=== PATIENT | female | born 1945 | race Caucasian/White ===

== ENCOUNTER → 2016-03-03 | Day surgery (SDC) | payer OTHER ==
[2016-02-25 10:25] VITALS: Ht 157.5 cm; Wt 77.3 kg
[2016-02-28 11:02] LABS: BASO % 0.3 %; BASO ABS # 0.02 K/uL (0-0.2); COMPLETE YES; EOS % 5.1 %; IG% 0.2 %; LYMPH % 30.1 %; LYMPH ABS # 1.73 K/uL (1.2-3.4); MEAN CELL VOLUME 88.2 fL (80-100); MEAN CORPUSCULAR HEMOGLOBIN 30.8 pg (25-34); MEAN CORPUSCULAR HGB CONC 34.9 g/dl (32-36); MEAN PLATELET VOLUME 9.4 fL (7.4-10.4); NEUT % 56.3 %; PLATELET COUNT 237 K/uL (130-400); RED BLOOD COUNT 4.65 M/uL (4.2-5.4); WHITE BLOOD COUNT 5.74 K/uL (4.8-10.8)
[~2016-03-03] VITALS: Ht 157.5 cm; Wt 77.3 kg
[~2016-03-03] MED LIST: ALPR0.25 PO; ASPI-232 PO; ATOR10TA88 PO; DEXAMETHASONE SOD INJ 4 MG/ML VIAL ONE; FENTANYL CITRATE INJ 50 MCG/1 ML 2 ML VIAL IV PRN; FENTANYL CITRATE INJ 50 MCG/1 ML 2 ML VIAL ONE; KETOROLAC TROMETHAMINE 30 MG/ML VIAL IV. PRN; KETOROLAC TROMETHAMINE 30 MG/ML VIAL ONE; LACTATED RINGER'S 1000ML 1,000 ML IV PRN; LACTATED RINGER'S 1000ML 1,000 ML IV SCH; LIDOCAINE HCL 2% 2 ML VIAL (20MG/ML) ONE; LORA-741 PO; METO25TA3 PO; MIDAZOLAM HCL 1 MG/ML 2ML VIAL ONE; NRV/5 PO; OMEP20CA9 PO; OMEP20TA14 PO; ONDANSETRON INJ 2 MG/ML 2 ML VIAL IV PRN; ONDANSETRON INJ 2 MG/ML 2 ML VIAL ONE; OXYCODONE/ACETAMINOPHEN 5-325 TAB PO PRN; PROMETHAZINE HCL INJ 25 MG in SODIUM CHLORIDE 0.9% 50ML 50 ML IV PRN; PROPOFOL IV EMULSION 10 MG/ML 20 ML VIAL IV ONE; SODIUM CHLORIDE 0.9% 1000ML 1,000 ML IV SCH; ZOLP5TAB6 PO
--- NOTE | 2016-03-03 08:08 | History & Physical Bridge - [place] ---
H&P Re-Evaluation Bridge Note: I have examined the patient, reviewed the History & Physical and in the interval since the performance of the History & Physical I have noted the following changes of clinical significance: No changes noted
--- NOTE | 2016-03-03 08:45 | Discharge Instructions-SurgCtr ---
Discharge Instructions Visit Reason for Visit: Thickened Endometrium Discharge Discharge Diagnosis / Problem: same Discharge Goals Goal(s): Diagnostic testing Activity Recommendations Activity Limitations: per Instructions/Follow-up section Anesthesia . Post Anesthesia Instructions: If you have had General Anesthesia or IV Sedation: * Do not drive today. * Resume driving when surgeon permits. * Do not make important decisions or sign legal documents today. * Call surgeon for: 1. Temperature elevations greater than 101 degrees F. 2. Uncontrollable pain. 3. Excessive bleeding. 4. Persistent nausea and vomiting. 5. Medication intolerance (nausea, vomiting or rash). * For nausea and vomiting use only clear liquids such as: tea, soda, bouillon until nausea subsides, then gradually increase diet as tolerated. * If you have any concerns or questions, call your surgeon's office. If physician is unavailable and it is an emergency, call 911 or go to the nearest emergency room. . Instructions / Follow-Up Instructions / Follow-Up ACTIVITY RECOMMENDATIONS: * Avoid tampons, douching, hot tubs, pools, and intercourse until bleeding has stopped. * May shower as usual. * No strenuous activity for 24-48 hours. After 24-48 hours, you may do anything you feel like doing (driving and sports are okay). SPECIAL CARE INSTRUCTIONS: Special Diet: * Mild nausea may occur in the immediate post-operative period. * Take clear liquids such as tea, cola or bouillon until all nausea has subsided; you may then resume your normal diet. Special Care: * Light bleeding and vaginal spotting can last from a few days to 3-4 weeks. Call your doctor if bleeding becomes heavier than the heaviest part of your period. * Check your temperature twice a day for one week. If it goes above 100.4 degrees Fahrenheit (38.0 Celsius), notify your doctor. * Call your doctor's office for an appointment for 6 weeks after your surgery. FOLLOW-UP VISIT: Call your doctor's office for an appointment for 6 weeks after your surgery. Diet Recommendations Home Diet: resume previous diet Procedures Procedures Performed: Dilatation and Curettage, Hysteroscopy Pending Studies Studies pending at discharge: yes (pathology review of specimen) Medical Emergencies . Who to Call and When: Medical Emergencies: If at any time you feel your situation is an emergency, please call 911 immediately. . Non-Emergent Contact Non-Emergency issues call your: Primary Care Provider, Master [employer] Parach[employer]ist . . "Provider Documentation" section prepared by Michelle Collins.
--- NOTE | 2016-03-03 08:46 | [facility] Post Operative Brief Note ---
Immediate Operative Summary Operative Date Mar 03, 2016. Pre-Operative Diagnosis Thickened Endometrium Post-Operative Diagnosis Same Procedure(s) Performed Dilatation and Curettage, Hysteroscopy Surgeon Dr. Collins Professor Of Food Biochemistry Surgeon(s) None Estimated Blood Loss Less than 5ML Findings Retroverted uterus, sounded to 8cm. Large amount of fluffy endometrium, obscuring tubal ostia. Specimens A. Endocervical Curettings B. Endometrial Curettings
--- NOTE | 2016-03-03 08:52 | Medical Student: [facility] ---
Immediate Operative Summary Operative Date Mar 03, 2016. Pre-Operative Diagnosis Post-menopausal bleeding Post-Operative Diagnosis Post-menopausal bleeding Procedure(s) Performed Dilation and curettage with hysteroscopy Surgeon Dr. Collins Car Scrubber Surgeon(s) None Estimated Blood Loss <5mL Findings Increased vasculature within the uterus. Retroverted uterus. Vaginal atrophy present. Specimens Endometrial samples obtained for pathology Complication(s) None Disposition Recovery Room / PACU
--- NOTE | 2016-03-03 09:19 | Anesthesia Progress Nt - [facility] ---
Anesthesia Post Op Note Date & Time Mar 03, 2016 at 09:18 Vital Signs Pain Intensity: 0 Vital Signs Past 12 Hours Date Time Temp Pulse Resp B/P Pulse Ox O2 Delivery O2 Flow Rate FiO2 03/03/16 08:50 36.0 92 16 134/90 99 Diffusion Mask 8 03/03/16 06:27 36.5 76 16 130/85 96 Room Air Notes Mental Status: alert / awake / arousable, participated in evaluation Pt Amnestic to Procedure: Yes Nausea / Vomiting: adequately controlled Pain: adequately controlled Airway Patency, RR, SpO2: stable & adequate BP & HR: stable & adequate Hydration State: stable & adequate Anesthetic Complications: no major complications apparent Pt doing well.
--- NOTE | 2016-03-03 09:28 | OPERATIVE REPORT ---
DATE OF OPERATION: 03/03/2016 PREOPERATIVE DIAGNOSIS: Thickened endometrium. POSTOPERATIVE DIAGNOSIS: Same. PROCEDURE: Hysteroscopy, dilation and curettage. SURGEON: Michelle Collins DO PRE K TEACHER: None. ESTIMATED BLOOD LOSS: Less than 5 mL. FINDINGS: Retroverted uterus sounded to 8 cm, large amount of endometrial tissue, unable to visualize tubal ostia. SPECIMENS: Endocervical curettings and endometrial curettings. DISPOSITION: Stable to PACU. INDICATIONS FOR PROCEDURE: The patient is a 70-year-old -0-1-0 who was found to have thickened endometrium with ultrasound for dull right lower pelvic pain. In office, endometrial biopsy was attempted but this was very painful, was a poor sample of tissue. Therefore, office hysteroscopy, dilation and curettage was performed. DESCRIPTION OF PROCEDURE: The patient was seen in the preoperative holding area where risks, benefits, alternatives of surgery were reviewed. She elected to proceed with surgery. Informed consent had previously been signed in the office. She was taken to the operating room where general anesthesia was administered. She was placed in the dorsal lithotomy position with feet in candy cane stirrups. A timeout was confirmed. The patient was prepared and draped in the usual sterile fashion. A weighted speculum was placed in the vagina. Cervix was visualized, it was grasped on the anterior lip with a single-tooth tenaculum. Endocervical curettage was undertaken. The specimen was passed off to be sent to pathology. Next, the uterus was sounded to 8 cm and noted to be retroverted. The cervix was sequentially dilated. The hysteroscope was then inserted through the cervix and the endometrial cavity was visualized. Due to thickened endometrium the tubal ostia were unable to be seen. Pictures were taken and the hysteroscope was withdrawn. The curettage was then undertaken with a sharp curette. This sample was sent to pathology as endometrial curettage. All instruments were removed from the vagina. Excellent hemostasis was observed. The patient was awoken from anesthesia and cleaned of all Betadine prep and taken to the recovery room in stable and good condition. I attest to the content of the Intraoperative Record and any orders documented therein. Any exceptions are noted below. RABIA
[2016-03-03 09:29] VITALS: TEMP 36.1
[2016-03-03 09:55] VITALS: BP 128/81; PULSE 65; O2SAT 97
== END | disposition home or self-care (01) ==
LOC: X.SURG 06:14
PROVIDERS: ATTEND Obstetrics & Gynecology
DX: N84.0 Polyp of corpus uteri (principal); R93.8 Abnormal findings on diagnostic imaging of other specified body structures; N85.4 Malposition of uterus

== ENCOUNTER 2016-04-09 01:23 | Observation (INO) | payer OTHER ==
[2016-04-09] VITALS (7 sets, daily range): BP systolic 133–139; BP diastolic 71–81; PULSE 82–85; TEMP 36.6–36.7; O2SAT 94–96; Ht 162.6 cm; Wt 75.0 kg
[~2016-04-09] VITALS: Ht 162.6 cm; Wt 75.0 kg
[~2016-04-09 01:23] MED LIST changes: -DEXAMETHASONE SOD INJ 4 MG/ML VIAL ONE; -FENTANYL CITRATE INJ 50 MCG/1 ML 2 ML VIAL IV PRN; -FENTANYL CITRATE INJ 50 MCG/1 ML 2 ML VIAL ONE; -KETOROLAC TROMETHAMINE 30 MG/ML VIAL IV. PRN; -KETOROLAC TROMETHAMINE 30 MG/ML VIAL ONE; -LACTATED RINGER'S 1000ML 1,000 ML IV PRN; -LACTATED RINGER'S 1000ML 1,000 ML IV SCH; -LIDOCAINE HCL 2% 2 ML VIAL (20MG/ML) ONE; -MIDAZOLAM HCL 1 MG/ML 2ML VIAL ONE; -OMEP20CA9 PO; -ONDANSETRON INJ 2 MG/ML 2 ML VIAL IV PRN; -ONDANSETRON INJ 2 MG/ML 2 ML VIAL ONE; -OXYCODONE/ACETAMINOPHEN 5-325 TAB PO PRN; -PROMETHAZINE HCL INJ 25 MG in SODIUM CHLORIDE 0.9% 50ML 50 ML IV PRN; -PROPOFOL IV EMULSION 10 MG/ML 20 ML VIAL IV ONE; -SODIUM CHLORIDE 0.9% 1000ML 1,000 ML IV SCH
[2016-04-09] MEDS ORDERED: NITROGLYCERIN 0.4 MG SL PER TAB CHARGE SL STA (02:26)
--- NOTE | 2016-04-09 02:27 | EMERGENCY ROOM VISIT NOTE ---
History Report prepared by Gerhard: Guillermina Palmer Under the Supervision of: Dr. Virginia Polo D.O. First contact with patient: 02:09 Chief Complaint: CARDIAC ASSESSMENT Stated Complaint: CHEST PRESSURE Nursing Triage Summary: pt arrived to [facility] via [facility] from home with c/o chest pressure that started approx 2300. pt reports 'its not pain, its like someone sitting on my chest' pt reports she had 'some left arm pain and nausea' pt reports hx of anxiety attacks. pt took half of an ativan and 2 baby aspirins prior to ambulance arrival. ambulance administered additional 2 baby asa for a total of 324mg. pt refused nitro d/t 'gives me a really bad headache' pt reports initially 8/10 pain. on arrival pt reports 3/10 arrival. pmhx htn, cardiac ablasion History of Present Illness The patient is a 70 year old female who presents to the Emergency Room with complaints of persistent chest heaviness that began around 2230 this evening. She currently rates her discomfort as a 3-4/10 in severity. The patient states that this evening she went to a basketball game around 1830 and states that she noticed left arm discomfort. She states that she took two aspirin and states that she started to feel better. The patient stats that around 2230 she noticed chest heaviness that kept worsening. The patient states that she additionally began feeling nauseous and states that her blood pressure was elevated at 174/104. She states that she took half an Ativan tablet to help with her symptoms, but denies any relief. The patient denies any shortness of breath with exertion or abdominal pain. Per records, the patient had a stress echocardiogram in April 2015 after having chest pain. Records note that the stress test was normal. The patient notes a family history of heart disease, stating that her father had a myocardial infarction, and additionally notes that he from an aortic dissection. She notes a personal history of hypertension and high cholesterol. The patient notes a family history of hypertension, but denies any personal family history of diabetes. Source of History: patient Onset: 0 this evenign Position: chest Symptom Intensity: 3-4/10 Quality: other (heaviness) Timing: other (persistent) Associated Symptoms: + nausea, No SOB, No abdominal pain Note: Associated Symptoms: elevated blood pressure, left arm pain Review of Systems See HPI for pertinent positives & negatives. A total of 10 systems reviewed and were otherwise negative. Past Medical & Surgical Medical Problems: (1) GERD (gastroesophageal reflux disease) (2) High cholesterol (3) HISTORY OF TOBACCO USE (4) HTN (hypertension) (5) MITRAL VALVE DISORDER (6) OBSTRUCTIVE SLEEP APNEA (ADULT) (PEDIATRIC) Surgical Problems: (1) H/O colonoscopy (2) H/O esophagogastroduodenoscopy (3) History of radiofrequency ablation procedure for cardiac arrhythmia (4) S/P cholecystectomy Family History Diabetes mellitus BROTHER FH: aortic dissection FATHER FH: cancer MOTHER (cervical) BROTHER (intestines) Stroke FATHER Social History Smoking Status: Never Smoker Marital Status: in relationship Occupation Status: employed Current/Historical Medications Scheduled Amlodipine Besylate (Amlodipine Besylate), 5 MG PO QAM Aspirin (Aspir-81), 81 MG PO QAM Atorvastatin (Lipitor), 10 MG PO HS Metoprolol Succ (Toprol Xl) (Toprol-Xl), 0.5 TAB PO HS Scheduled PRN Alprazolam (Xanax), 0.25 MG PO UD PRN for 1 hour pre flight Lorazepam (Ativan), 0.5 MG PO DAILY PRN for Anxiety Zolpidem Tartrate (Zolpidem Tartrate), 10 MG PO HS PRN for Sleep Allergies Coded Allergies: Latex1 -Allergic Contact Dermititis (Unverified Allergy, Intermediate, RASH, PRURITIS, 04/09/16) Aspartame (Verified Adverse Reaction, Unknown, n/v violent bar, 04/09/16) Erythromycin (Verified Adverse Reaction, Unknown, HEADACHE AND GI SYMPTOMS , 04/09/16) Neomycin (Verified Adverse Reaction, Unknown, "makes things worse when i use it", 04/09/16) Physical Exam Vital Signs Date Time Temp Pulse Resp B/P Pulse Ox O2 Delivery O2 Flow Rate FiO2 04/09/16 03:05 87 18 122/68 04/09/16 02:35 116 18 154/95 94 Room Air 04/09/16 01:32 79 04/09/16 01:29 96 Room Air 04/09/16 01:29 36.6 93 18 164/94 95 Room Air 04/09/16 01:29 96 Room Air Physical Exam HEENT: Head - normocephalic and atraumatic Pupils are equal, round, and reactive to light. Extraocular eye muscles are intact, and sclera are anicteric. Nose - moist nasal mucosa without discharge. Mouth - moist buccal mucosa. Oropharynx is nonerythematous and there is no tonsillar exudate or edema noted. Neck: Supple; no JVD, nuchal rigidity, cervical lymphadenopathy. Heart: Regular rate and rhythm. There is a normal S1 and S2 with no murmurs, clicks, or gallops appreciated. Lungs: Clear to auscultation bilaterally with no wheezes, rales, or rhonchi. Abdomen: Soft, completely nontender, nondistended, with good bowel sounds. There are no palpable pulsatile masses or hepatosplenomegaly. There is no guarding, rigidity, or rebound noted. Extremities: No evidence of cyanosis, clubbing, or edema. There are easily palpable peripheral pulses. Skin: warm and dry with good turgor and no rashes. Medical Decision & Procedures ER Provider Diagnostic Interpretation: 1 view chest x-ray: Compared to April 28 last year, elevated right natacha- diaphragm, atelectasis in left lung base, no pulmonary edema. Laboratory Results 04/09/16 01:05 Red Blood Count 5.27, Mean Corpuscular Volume 88.0, Mean Corpuscular Hemoglobin 30.7, Mean Corpuscular Hemoglobin Concent 34.9, Mean Platelet Volume 9.4, Neutrophils (%) (Auto) 55.0, Lymphocytes (%) (Auto) 31.4, Monocytes (%) (Auto) 9.0, Eosinophils (%) (Auto) 4.4, Basophils (%) (Auto) 0.1, Neutrophils # (Auto) 4.30, Lymphocytes # (Auto) 2.45, Monocytes # (Auto) 0.70, Eosinophils # (Auto) 0.34, Basophils # (Auto) 0.01 04/09/16 01:05 Test 04/09/16 01:05 White Blood Count 7.81 K/uL (4.8-10.8) Red Blood Count 5.27 M/uL (4.2-5.4) Hemoglobin 16.2 g/dL (12.0-16.0) Hematocrit 46.4 % (37-47) Mean Corpuscular Volume 88.0 fL (80-100) Mean Corpuscular Hemoglobin 30.7 pg (25-34) Mean Corpuscular Hemoglobin Concent 34.9 g/dl (32-36) Platelet Count 214 K/uL (130-400) Mean Platelet Volume 9.4 fL (7.4-10.4) Neutrophils (%) (Auto) 55.0 % Lymphocytes (%) (Auto) 31.4 % Monocytes (%) (Auto) 9.0 % Eosinophils (%) (Auto) 4.4 % Basophils (%) (Auto) 0.1 % Neutrophils # (Auto) 4.30 K/uL (1.4-6.5) Lymphocytes # (Auto) 2.45 K/uL (1.2-3.4) Monocytes # (Auto) 0.70 K/uL (0.11-0.59) Eosinophils # (Auto) 0.34 K/uL (0-0.5) Basophils # (Auto) 0.01 K/uL (0-0.2) RDW Standard Deviation 46.1 fL (36.4-46.3) RDW Coefficient of Variation 14.2 % (11.5-14.5) Immature Granulocyte % (Auto) 0.1 % Immature Granulocyte # (Auto) 0.01 K/uL (0.00-0.02) Prothrombin Time 10.5 SECONDS (9.0-12.0) Prothromb Time International Ratio 1.0 (0.9-1.1) Activated Partial Thromboplast Time 27.1 SECONDS (21.0-31.0) Partial Thromboplastin Ratio 1.0 Anion Gap 10.0 mmol/L (3-11) Est Creatinine Clear Calc Drug Dose 71.2 ml/min Estimated GFR () 94.9 Estimated GFR (Non- 81.9 BUN/Creatinine Ratio 12.6 (10-20) Calcium Level 9.2 mg/dl (8.5-10.1) Total Bilirubin 0.3 mg/dl (0.2-1) Direct Bilirubin < 0.1 mg/dl (0-0.2) Aspartate Amino Transf (AST/SGOT) 22 U/L (15-37) Alanine Aminotransferase (ALT/SGPT) 31 U/L (12-78) Alkaline Phosphatase 97 U/L (45-117) Total Creatine Kinase 41 U/L (26-192) Creatine Kinase MB 0.6 ng/ml (0.5-3.6) Creatine Kinase MB Ratio 1.5 (0-3.0) Troponin I < 0.015 ng/ml (0-0.045) Total Protein 8.1 gm/dl (6.4-8.2) Albumin 4.3 gm/dl (3.4-5.0) Laboratory results per my review. Medications Administered Medications (Trade) Dose Ordered Sig/Doris Route Start Time Stop Time Status Last Admin Dose Admin Nitroglycerin (Nitrostat Tab) 0.4 mg Q5M STAT SL 04/09/16 02:26 04/09/16 02:27 DC 04/09/16 02:31 0.4 MG Procedure The patient was treated with 0.4 mg SL Nitrostat Tab. ECG Indication: chest pain Rate (beats per minute): 86 Rhythm: normal sinus Findings: no acute ischemic change, no ectopy ED Course 0217: Past medical records reviewed. The patient was evaluated in room A4B. A complete history and physical exam was performed. An IV lock was initiated and labs are drones above. A twelve-lead EKG was obtained as described above. She was observing the runner on and pulse oximeter. 0226: Ordered Nitrostat Tab 0.4 mg SL. 0304: I reevaluated the patient and she has had complete relief of her chest she had a chest x-ray as described above. Symptoms with the nitroglycerin. She denies any headache at this time. I discussed the exam findings with her and I discussed the treatment plan. She verbalized complete understanding and agreement. She is going to be evaluated for further treatment. 0315: I discussed the patient's case with Perla Reynoso. She is going to evaluate the patient for further treatment. Medical Decision The patient is a 70 year old female who presents to the ED with chest heaviness. Differential diagnosis includes cardiac ischemia, acute coronary syndrome, STEMI, GERD, anxiety. Lab interpretation: table H&H, no leukocytosis, normal LFTs, normal renal function, negative cardiac enzymes, normal coagulation studies. This is a 70-year-old female patient who presents to the emergency department with left arm discomfort, chest heaviness, and nausea. She has a history of hyperlipidemia and hypertension. She had an episode of chest discomfort 1 year ago for which she had a stress echo. This was negative at that time. I'm concerned about the patient's presentation. Her chest discomfort was completely relieved with sublingual nitroglycerin. I believe she requires further evaluation by cardiology. Consults Time Called: [phone] Consulting Physician: Perla Reynoso Returned Call: [phone] I discussed the patient's case with Perla Reynoso. She is going to evaluate the patient for further treatment. Impression Primary Impression: Chest heaviness Additional Impression: Left arm pain Scribe Attestation The scribe's documentation has been prepared under my direction and personally reviewed by me in its entirety. I confirm that the note above accurately reflects all work, treatment, procedures, and medical decision making performed by me. Departure Information Dispostion Being Evaluated By Hospitalist Referrals No Doctor, Assigned (PCP) Problem Qualifiers
[2016-04-09 02:48] LABS: PROTHROMBIN TIME (PATIENT) 10.5 SECONDS (9.0-12.0)
[2016-04-09 02:51] LABS: BASO % 0.1 %; BASO ABS # 0.01 K/uL (0-0.2); COMPLETE YES; EOS % 4.4 %; HEMATOCRIT 46.4 % (37-47); IG% 0.1 %; LYMPH % 31.4 %; LYMPH ABS # 2.45 K/uL (1.2-3.4); MEAN CORPUSCULAR HEMOGLOBIN 30.7 pg (25-34); MEAN CORPUSCULAR HGB CONC 34.9 g/dl (32-36); MEAN PLATELET VOLUME 9.4 fL (7.4-10.4); PLATELET COUNT 214 K/uL (130-400); RED BLOOD COUNT 5.27 M/uL (4.2-5.4); WHITE BLOOD COUNT 7.81 K/uL (4.8-10.8)
[2016-04-09 02:59] LABS: ALT/SGPT 31 U/L (12-78); AST/SGOT 22 U/L (15-37); BLOOD UREA NITROGEN 9 mg/dl (7-18); BUN/CREATININE RATIO 12.6 (10-20); CALCIUM 9.2 mg/dl (8.5-10.1); CARBON DIOXIDE 27 mmol/L (21-32); CHLORIDE 105 mmol/L (98-107); CREATININE 0.75 mg/dl (0.60-1.20); GLUCOSE 82 mg/dl (70-99); POTASSIUM 3.3 mmol/L (3.5-5.1); SODIUM 142 mmol/L (136-145)
[2016-04-09 03:04] LABS: ALKALINE PHOSPHATASE 97 U/L (45-117); CKMB/CK RATIO 1.5 (0-3.0)
[2016-04-09] MEDS ORDERED: NITROGLYCERIN 0.4 MG SL PER TAB CHARGE SL PRN (05:15)
[2016-04-09] MEDS ORDERED: ONDANSETRON INJ 2 MG/ML 2 ML VIAL IV PRN (05:15)
[2016-04-09] MEDS ORDERED: POLYETHYLENE (MIRALAX) 17 GM PACK PO PRN (05:15)
[2016-04-09] MEDS ORDERED: MoRPHine SULFATE 2 MG/ML CARP IV PRN (05:15)
[2016-04-09] MEDS ORDERED: ACETAMINOPHEN 325 MG TAB PO PRN (05:15)
[2016-04-09] MEDS ORDERED: IV FLUIDS COMPLETED PRN (05:45)
--- NOTE | 2016-04-09 06:40 | DIAGNOSTIC IMAGING REPORT ---
CHEST ONE VIEW PORTABLE CLINICAL HISTORY: Atypical chest pain COMPARISON STUDY: 04/29/2015 FINDINGS: The study is mildly rotated. Mild right hilar prominence is likely vascular. The heart is normal in size. There is no failure. There is no focal pulmonary consolidation. Increased basal markings are felt to be secondary to a combination of fat pad and atelectatic change. There are no cystic or pleural effusions.[ IMPRESSION: AP portable study. No acute findings. Electronically signed by: Toi Prasad M.D. 04/09/2016 6:38 AM Dictated Date/Time: 04/09/2016 6:37 AM
[2016-04-09] MEDS ORDERED: OMEP20CA9 PO (06:51)
[2016-04-09] MEDS: POTASSIUM CHLORIDE 20 MEQ TABCR PO SCH ×2 (06:58→12:10)
[2016-04-09] MEDS ORDERED: LORAZEPAM 0.5 MG TAB PO PRN (07:00)
[2016-04-09] MEDS ORDERED: ZOLPIDEM TARTRATE 5 MG TAB PO PRN (07:00)
--- NOTE | 2016-04-09 07:14 | History and Physical ---
History & Physical Date & Time of Service: Apr 09, 2016 at 06:51 Chief Complaint: Chest Pain Primary Care Physician: Maria L Escobar M.D. History of Present Illness Source: patient 70 yoF with risk factors for CAD to include HTN, HLP and age presents today with chest pressure. She describes being at the local basketball game (ate 3 fries at the game) when she felt pain in her L arm between her eblow and her shoulder along with some nausea. She took two aspirin and felt somewhat better. She came home later and describes substernal chest pressure that was described as "someone squeezing my chest." She reports feeling nautious again but was able to eat some ice cream. She took some Ativan and her BP was 174/ 104. She went to lay down and became worse overall describing chest pressure, diaphoresis and nautiousness. She denies any numbness or tingling and no palpitations or shortness of breath. She reports feeling relief with the nitro given to her in the ER--there was resolution of her BP also from the 180s systolic (per ER physician) to 130s systolic. Past Medical/Surgical History Medical Problems: (1) GERD (gastroesophageal reflux disease) Status: Chronic (2) High cholesterol Status: Chronic (3) HISTORY OF TOBACCO USE Status: Chronic (4) HTN (hypertension) Status: Chronic (5) MITRAL VALVE DISORDER Status: Chronic (6) OBSTRUCTIVE SLEEP APNEA (ADULT) (PEDIATRIC) Status: Chronic Surgical Problems: (1) H/O colonoscopy Permanent Comment: normal repeat in 10 years- 2010 Status: Chronic (2) H/O esophagogastroduodenoscopy Status: Chronic (3) History of radiofrequency ablation procedure for cardiac arrhythmia Status: Chronic (4) S/P cholecystectomy Status: Chronic Family History Diabetes mellitus BROTHER FH: aortic dissection FATHER FH: cancer MOTHER (cervical) BROTHER (intestines) Stroke FATHER Social History Smoking Status: Never Smoker Smokeless Tobacco Use: No Alcohol Use: socially Drug Use: none Marital Status: in relationship Housing status: lives with family, lives with significant other Occupational Status: employed (speech therapy assistant) Immunizations History of Influenza Vaccine: Yes Influenza Vaccine Date: Nov 12, 2015 History of Tetanus Vaccine?: Yes Tetanus Immunization Date: Apr 15, 2010 History of Pneumococcal: No Pneumococcal Date: Nov 30, 2014 History of Hepatitis B Vaccine: Unknown Multi-Drug Resistant Organisms History of MDRO: No Allergies Coded Allergies: Latex1 -Allergic Contact Dermititis (Unverified Allergy, Intermediate, RASH, PRURITIS, 04/09/16) Aspartame (Verified Adverse Reaction, Unknown, n/v violent bar, 04/09/16) Erythromycin (Verified Adverse Reaction, Unknown, HEADACHE AND GI SYMPTOMS , 04/09/16) Neomycin (Verified Adverse Reaction, Unknown, "makes things worse when i use it", 04/09/16) Home Medications Scheduled Amlodipine Besylate (Amlodipine Besylate), 5 MG PO QAM Aspirin (Aspir-81), 81 MG PO QAM Atorvastatin (Lipitor), 10 MG PO HS Metoprolol Succ (Toprol Xl) (Toprol-Xl), 0.5 TAB PO HS Omeprazole (Prilosec), 1 CAP PO DAILY Scheduled PRN Alprazolam (Xanax), 0.25 MG PO UD PRN for 1 hour pre flight Lorazepam (Ativan), 0.5 MG PO DAILY PRN for Anxiety Zolpidem Tartrate (Zolpidem Tartrate), 5 MG PO HS PRN for Sleep Review of Systems All systems reviewed and negative except as indicated in HPI. Physical Exam Vital Signs Date Time Temp Pulse Resp B/P Pulse Ox O2 Delivery O2 Flow Rate FiO2 04/09/16 06:00 83 16 133/71 94 Room Air 04/09/16 05:41 89 04/09/16 05:00 73 16 125/77 93 Room Air 04/09/16 03:05 87 18 122/68 04/09/16 02:35 116 18 154/95 94 Room Air 04/09/16 01:32 79 04/09/16 01:29 96 Room Air 04/09/16 01:29 36.6 93 18 164/94 95 Room Air 04/09/16 01:29 96 Room Air GEN: WNWD, in no acute distress, alert and appropriate HEENT: NC/AT, PERRL, normal sclerae CARDIO: reg rate, S1/2 heard without m/g/r, +chest wall tenderness to palpation across precordium LUNGS: CTA bilaterally, no crackles, rales or wheezes, good diaphragmatic excursion ABD: +BS, soft, mild tenderness to palpation in RUQ, non-distended, no rebound or guarding EXTREMITY: RP and DP palpable 2+ bilat, no LE swelling or edema, extremities are warm and well-perfused NEURO: CN 2-12 grossly intact, sensation intact throughout MUSC: 5/5 strength throughout, no focal deficits SKIN: warm and dry Diagnostics Laboratory Results Results Past 24 Hours Test 04/09/16 01:05 04/09/16 06:20 Range/Units White Blood Count 7.81 4.8-10.8 K/uL Red Blood Count 5.27 4.2-5.4 M/uL Hemoglobin 16.2 12.0-16.0 g/dL Hematocrit 46.4 37-47 % Mean Corpuscular Volume 88.0 80-100 fL Mean Corpuscular Hemoglobin 30.7 25-34 pg Mean Corpuscular Hemoglobin Concent 34.9 32-36 g/dl Platelet Count 214 130-400 K/uL Mean Platelet Volume 9.4 7.4-10.4 fL Neutrophils (%) (Auto) 55.0 % Lymphocytes (%) (Auto) 31.4 % Monocytes (%) (Auto) 9.0 % Eosinophils (%) (Auto) 4.4 % Basophils (%) (Auto) 0.1 % Neutrophils # (Auto) 4.30 1.4-6.5 K/uL Lymphocytes # (Auto) 2.45 1.2-3.4 K/uL Monocytes # (Auto) 0.70 0.11-0.59 K/uL Eosinophils # (Auto) 0.34 0-0.5 K/uL Basophils # (Auto) 0.01 0-0.2 K/uL RDW Standard Deviation 46.1 36.4-46.3 fL RDW Coefficient of Variation 14.2 11.5-14.5 % Immature Granulocyte % (Auto) 0.1 % Immature Granulocyte # (Auto) 0.01 0.00-0.02 K/uL Prothrombin Time 10.5 9.0-12.0 SECONDS Prothromb Time International Ratio 1.0 0.9-1.1 Activated Partial Thromboplast Time 27.1 21.0-31.0 SECONDS Partial Thromboplastin Ratio 1.0 Sodium Level 142 136-145 mmol/L Potassium Level 3.3 3.5-5.1 mmol/L Chloride Level 105 98-107 mmol/L Carbon Dioxide Level 27 21-32 mmol/L Anion Gap 10.0 3-11 mmol/L Blood Urea Nitrogen 9 7-18 mg/dl Creatinine 0.75 0.60-1.20 mg/dl Est Creatinine Clear Calc Drug Dose 71.2 ml/min Estimated GFR () 94.9 Estimated GFR (Non- 81.9 BUN/Creatinine Ratio 12.6 10-20 Random Glucose 82 70-99 mg/dl Calcium Level 9.2 8.5-10.1 mg/dl Total Bilirubin 0.3 0.2-1 mg/dl Direct Bilirubin < 0.1 0-0.2 mg/dl Aspartate Amino Transf (AST/SGOT) 22 15-37 U/L Alanine Aminotransferase (ALT/SGPT) 31 12-78 U/L Alkaline Phosphatase 97 45-117 U/L Total Creatine Kinase 41 26-192 U/L Creatine Kinase MB 0.6 0.5-3.6 ng/ml Creatine Kinase MB Ratio 1.5 0-3.0 Troponin I < 0.015 0-0.045 ng/ml Total Protein 8.1 6.4-8.2 gm/dl Albumin 4.3 3.4-5.0 gm/dl Diagnostic Radiology CXR: AP portable study. No acute findings. EKG SR 86, 1AVB, no q waves or ST changes to suggest active ischemia Impression Assessment and Plan 70 yoF with risk factors for CAD presents with chest pressure for several hours. 1. Chest pain-rule out ACS. trend enzymes. Cont BB, statin, ASA, nitro/ morphine PRN. No evidence of ACS on labs or EKG at this time. CXR also clear. There is significant chest tenderness to palpation on exam, however, this does not reproduce the chest pressure she was experiencing. She did undergo a stress test last year which was normal. 2. Hypokalemia-replace with PO supplementation 3. HTN-was initially uncontrolled until nitro given and is now in the 130s. Cont Toprol and Norvasc 4. Anxiety-Ativan PRN 5. HIWOT-uses CPAP at home 6. h/o paroxysmal SVT s/p ablation-follows with Cardiology as outpatient annually for this. 7. HLP-on Lipitor, lipid panel ordered 8. GERD-Prilosec converted to Protonix while inpatient Lovenox 40 Full Code Dispo-to telemetry for monitoring Karen Munoz DO [facility] Hospitalist. Level of Care Telemetry Advanced Directives Existing Living Will: No Existing Power of Automotive General Sales Manager: Yes Resuscitation Status FULL RESUSCITATION VTE Prophylaxis VTE Risk Assessment Done? Y/N: Yes Risk Level: Moderate Given or contraindicated: Enoxaparin (Lovenox)SQ Social Service Consult None Apply
[2016-04-09 07:18] LABS: CHOLESTEROL 137 mg/dl (0-200); CHOLESTEROL/HDL RATIO 1.7; CKMB/CK RATIO 2.7 (0-3.0); HDL CHOLESTEROL 79 mg/dl; LDL CHOLESTEROL CALCULATED 51 mg/dl; TRIGLYCERIDES 36 mg/dl (0-150); VERY LOW DENSITY LIPOPROT CALC 7 mg/dl
[2016-04-09] MEDS ORDERED: ASPIRIN 81 MG ECTAB PO SCH ×2 (09:00)
[2016-04-09] MEDS ORDERED: PANTOprazole SOD 40 MG TAB PO SCH (09:00)
[2016-04-09] MEDS ORDERED: ENOXAPARIN 40 MG/0.4 ML SYR SC SCH (09:00)
[2016-04-09] MEDS ORDERED: AMLODIPINE BESYLATE 5 MG TAB PO SCH (09:00)
[2016-04-09 13:31] LABS: CKMB/CK RATIO 2.6 (0-3.0)
--- NOTE | 2016-04-09 14:43 | Progress Note ---
Subjective Date of Service: Apr 09, 2016. Subjective Pt evaluation today including: conversation w/ patient, conversation w/ family , physical exam, lab review, review of studies, review of inpatient medication list Saw/examined the patient in room C7 in the ER States she presented with some epigastric/lower chest pressure pressure resolved and subsided with medications in the ER has not returned since no other associated symptoms noted Problem List Medical Problems: (1) Back pain Status: Acute (2) Chest heaviness Status: Acute (3) Left arm pain Status: Acute (4) Precordial chest pain Status: Acute Review of Systems Constitutional: No chills, No fever Respiratory: No cough, No dyspnea at rest, No dyspnea on exertion, No hemoptysis, No shortness of breath, No sputum, No wheezing Cardiac: No PND, No chest pain, No claudication, No edema, No orthopnea, No palpitations Medications Current Inpatient Medications Medications (Trade) Dose Ordered Sig/Doris Route Start Time Stop Time Status Last Admin Dose Admin Enoxaparin Sodium (Lovenox Inj) 40 mg Q24H SC 04/09/16 09:00 05/09/16 08:59 04/09/16 08:42 40 MG Acetaminophen (Tylenol Tab) 650 mg Q4H PRN PO 04/09/16 05:15 05/09/16 05:14 Ondansetron HCl (Zofran Inj) 4 mg Q6H PRN IV 04/09/16 05:15 05/09/16 05:14 Nitroglycerin (Nitrostat Tab) 0.4 mg UD PRN SL 04/09/16 05:15 05/09/16 05:14 Morphine Sulfate (MoRPHine SULFATE INJ) 2 mg Q30M PRN IV 04/09/16 05:15 04/23/16 05:14 Aspirin (Ecotrin Tab) 81 mg QAM PO 04/09/16 09:00 05/09/16 08:59 04/09/16 08:41 81 MG Polyethylene (Miralax Powder Packet) 17 gm DAILY PRN PO 04/09/16 05:15 05/09/16 05:14 Miscellaneous (Iv Fluids Completed) 1 ea PRN PRN N/A 04/09/16 05:45 04/09/17 05:44 Amlodipine Besylate (Norvasc Tab) 5 mg QAM PO 04/09/16 09:00 05/09/16 08:59 04/09/16 08:41 5 MG Atorvastatin Calcium (Lipitor Tab) 10 mg HS PO 04/09/16 21:00 05/09/16 20:59 Lorazepam (Ativan Tab) 0.5 mg DAILY PRN PO 04/09/16 07:00 05/09/16 06:59 Metoprolol Succinate (Toprol Xl Tab) 12.5 mg HS PO 04/09/16 21:00 05/09/16 20:59 Zolpidem Tartrate (Ambien Tab) 5 mg HS PRN PO 04/09/16 07:00 05/09/16 06:59 Pantoprazole Sodium (Protonix Tab) 40 mg QAM PO 04/09/16 09:00 05/09/16 08:59 04/09/16 09:26 40 MG Objective Vital Signs Date Time Temp Pulse Resp B/P Pulse Ox O2 Delivery O2 Flow Rate FiO2 04/09/16 14:24 36.7 82 18 96 Room Air 04/09/16 12:16 96 Room Air 04/09/16 11:35 96 Room Air 04/09/16 11:34 36.7 82 18 138/80 96 Room Air 04/09/16 08:00 36.6 85 18 139/81 96 Room Air 04/09/16 08:00 96 Room Air 04/09/16 07:40 81 04/09/16 06:00 83 16 133/71 94 Room Air 04/09/16 05:41 89 04/09/16 05:00 73 16 125/77 93 Room Air 04/09/16 03:05 87 18 122/68 04/09/16 02:35 116 18 154/95 94 Room Air 04/09/16 01:32 79 04/09/16 01:29 96 Room Air 04/09/16 01:29 36.6 93 18 164/94 95 Room Air 04/09/16 01:29 96 Room Air Physical Exam General Appearance: no apparent distress Respiratory/Chest: lungs clear, normal breath sounds, no respiratory distress, no accessory muscle use Cardiovascular: regular rate, rhythm, no edema, no murmur Abdomen: normal bowel sounds, non tender, soft Extremities: normal inspection, no pedal edema Neurologic/Psychiatric: no motor/sensory deficits, alert, normal mood/affect Skin: normal color Lymphatic: no adenopathy Laboratory Results Last 24 Hours Test 04/09/16 01:05 04/09/16 06:20 04/09/16 13:00 White Blood Count 7.81 K/uL Red Blood Count 5.27 M/uL Hemoglobin 16.2 g/dL Hematocrit 46.4 % Mean Corpuscular Volume 88.0 fL Mean Corpuscular Hemoglobin 30.7 pg Mean Corpuscular Hemoglobin Concent 34.9 g/dl Platelet Count 214 K/uL Mean Platelet Volume 9.4 fL Neutrophils (%) (Auto) 55.0 % Lymphocytes (%) (Auto) 31.4 % Monocytes (%) (Auto) 9.0 % Eosinophils (%) (Auto) 4.4 % Basophils (%) (Auto) 0.1 % Neutrophils # (Auto) 4.30 K/uL Lymphocytes # (Auto) 2.45 K/uL Monocytes # (Auto) 0.70 K/uL Eosinophils # (Auto) 0.34 K/uL Basophils # (Auto) 0.01 K/uL RDW Standard Deviation 46.1 fL RDW Coefficient of Variation 14.2 % Immature Granulocyte % (Auto) 0.1 % Immature Granulocyte # (Auto) 0.01 K/uL Prothrombin Time 10.5 SECONDS Prothromb Time International Ratio 1.0 Activated Partial Thromboplast Time 27.1 SECONDS Partial Thromboplastin Ratio 1.0 Sodium Level 142 mmol/L Potassium Level 3.3 mmol/L Chloride Level 105 mmol/L Carbon Dioxide Level 27 mmol/L Anion Gap 10.0 mmol/L Blood Urea Nitrogen 9 mg/dl Creatinine 0.75 mg/dl Est Creatinine Clear Calc Drug Dose 71.2 ml/min Estimated GFR () 94.9 Estimated GFR (Non- 81.9 BUN/Creatinine Ratio 12.6 Random Glucose 82 mg/dl Calcium Level 9.2 mg/dl Total Bilirubin 0.3 mg/dl Direct Bilirubin < 0.1 mg/dl Aspartate Amino Transf (AST/SGOT) 22 U/L Alanine Aminotransferase (ALT/SGPT) 31 U/L Alkaline Phosphatase 97 U/L Total Creatine Kinase 41 U/L 33 U/L 35 U/L Creatine Kinase MB 0.6 ng/ml 0.9 ng/ml 0.9 ng/ml Creatine Kinase MB Ratio 1.5 2.7 2.6 Troponin I < 0.015 ng/ml < 0.015 ng/ml < 0.015 ng/ml Total Protein 8.1 gm/dl Albumin 4.3 gm/dl Triglycerides Level 36 mg/dl Cholesterol Level 137 mg/dl HDL Cholesterol 79 mg/dl LDL Cholesterol, Calculated 51 mg/dl VLDL Cholesterol, Calculated 7 mg/dl Cholesterol/HDL Ratio 1.7 Hepatitis C Antibody Screen NEG Assessment and Plan This is a 70 year old female with PMH of HTN, HLD, anxiety, Hx. of SVTs s/p ablation, GERD presents with chest pain Chest Pain r/o ACS unlikely a coronary syndrome: EKG with no significant findings; no ST-T wave changes cardiac enzymes are negative x 3 patient had a stress echo done in April of 2015 and was negative patient told to continue taking aspirin 81mg She is to continue b-shara and statin for hypertension and hyperlipidemia, respectively outpatient follow-up with PCP she follows regularly with cardiology and should keep her future appointment HTN blood pressure is stable continue Norvasc and b-shara HLD continue statin Anxiety possibly anxiety related chest pain? We will continue current medications Hx. of SVT s/p ablation to follow with cardiology as outpatient continue b-shara and CCB use DVT ppx Loveonx FULL CODE
--- NOTE | 2016-04-09 14:48 | Discharge Instructions ---
Discharge Instructions Admission Reason for Admission: Chest Pain Discharge Discharge Diagnosis / Problem: Chest Pain, unlikely ACS - possible anxiety/GERD Discharge Goals Goal(s): Decrease discomfort, Improve function, Diagnostic testing Activity Recommendations Activity Limitations: resume your previous activity . Instructions / Follow-Up Instructions / Follow-Up Please follow-up with Dr. Maria L Escobar on April 15 @ 11:10AM Current Hospital Diet Patient's current hospital diet: AHA Diet (Heart Healthy) Discharge Diet Recommended Diet: AHA Diet (Heart Healthy) Pending Studies Studies pending at discharge: no Laboratory Results Lipid Panel Test 04/09/16 06:20 Range/Units Triglycerides Level 36 0-150 mg/dl Cholesterol Level 137 0-200 mg/dl HDL Cholesterol 79 mg/dl Cholesterol/HDL Ratio 1.7 LDL Cholesterol, Calculated 51 mg/dl Medical Emergencies . Who to Call and When: Medical Emergencies: If at any time you feel your situation is an emergency, please call 911 immediately. . Non-Emergent Contact Non-Emergency issues call your: Primary Care Provider . . "Provider Documentation" section prepared by Dharmesh Nguyen. VTE Core Measure Inpt VTE Proph given/why not?: Enoxaparin (Lovenox)SQ
--- NOTE | 2016-04-09 14:50 | Discharge Summary ---
Discharge Summary Date of Service Apr 09, 2016. Discharge Summary Admission Date: Apr 09, 2016 at 05:17 Discharge Date: Apr 09, 2016 Discharge Disposition: Home Principal Diagnosis: Chest Pain, unlikely ACS, more likely anxiety or GERD Medication Reconciliation Continued Medications: Alprazolam (Xanax) 0.25 Mg Tab 0.25 MG PO UD PRN for 1 hour pre flight, TAB Amlodipine Besylate (Amlodipine Besylate) 5 Mg Tab 5 MG PO QAM Aspirin (Aspir-81) 81 Mg Tab 81 MG PO QAM Atorvastatin (Lipitor) 10 Mg Tab 10 MG PO HS, TAB Lorazepam (Ativan) 0.5 Mg Tab 0.5 MG PO DAILY PRN for Anxiety Metoprolol Succ (Toprol Xl) (Toprol-Xl) 25 Mg Tabcr 0.5 TAB PO HS, #30 TAB Omeprazole (Prilosec) 20 Mg Cap 1 CAP PO DAILY for 30 Days, #30 CAP 5 Refills Zolpidem Tartrate (Zolpidem Tartrate) 5 Mg Tab 5 MG PO HS PRN for Sleep Admission Information HPI (per Admitting provider): 70 yoF with risk factors for CAD to include HTN, HLP and age presents today with chest pressure. She describes being at the local basketball game (ate 3 fries at the game) when she felt pain in her L arm between her eblow and her shoulder along with some nausea. She took two aspirin and felt somewhat better. She came home later and describes substernal chest pressure that was described as "someone squeezing my chest." She reports feeling nautious again but was able to eat some ice cream. She took some Ativan and her BP was 174/ 104. She went to lay down and became worse overall describing chest pressure, diaphoresis and nautiousness. She denies any numbness or tingling and no palpitations or shortness of breath. She reports feeling relief with the nitro given to her in the ER--there was resolution of her BP also from the 180s systolic (per ER physician) to 130s systolic. Physical Exam (per Admitting): GEN: WNWD, in no acute distress, alert and appropriate HEENT: NC/AT, PERRL, normal sclerae CARDIO: reg rate, S1/2 heard without m/g/r, +chest wall tenderness to palpation across precordium LUNGS: CTA bilaterally, no crackles, rales or wheezes, good diaphragmatic excursion ABD: +BS, soft, mild tenderness to palpation in RUQ, non-distended, no rebound or guarding EXTREMITY: RP and DP palpable 2+ bilat, no LE swelling or edema, extremities are warm and well-perfused NEURO: CN 2-12 grossly intact, sensation intact throughout MUSC: 5/5 strength throughout, no focal deficits SKIN: warm and dry Hospital Course This is a 70 year old female with PMH of HTN, HLD, anxiety, Hx. of SVTs s/p ablation, GERD presents with chest pain Chest Pain r/o ACS unlikely a coronary syndrome: EKG with no significant findings; no ST-T wave changes cardiac enzymes are negative x 3 patient had a stress echo done in April of 2015 and was negative patient told to continue taking aspirin 81mg She is to continue b-shara and statin for hypertension and hyperlipidemia, respectively outpatient follow-up with PCP she follows regularly with cardiology and should keep her future appointment HTN blood pressure is stable continue Norvasc and b-shara HLD continue statin Anxiety possibly anxiety related chest pain? We will continue current medications Hx. of SVT s/p ablation to follow with cardiology as outpatient continue b-shara and CCB use DVT ppx Loveonx FULL CODE Total time spent on discharge = 25 minutes This includes examination of the patient, discharge planning, medication reconciliation, and communication with other providers. Discharge Instructions Please follow-up with Dr. Maria L Escobar on April 15 @ 11:10AM
[2016-04-09] MEDS ORDERED: METOPROLOL SUCC 25MG EXT REL TAB PO SCH (21:00)
[2016-04-09] MEDS ORDERED: ATORVASTATIN 10 MG TAB PO SCH (21:00)
== END 2016-04-09 15:00 | disposition home or self-care (01) ==
LOC: ENRESERVDT → ENRESERVTM → EDBD 01:23 → C.EDA 01:26 → C.EDINP 05:17 → CANBEDREQ 16:21
PROVIDERS: ADMIT Hospitalist; ATTEND Family Medicine
DX: R07.9 Chest pain, unspecified (principal); E87.6 Hypokalemia; E78.5 Hyperlipidemia, unspecified; G47.33 Obstructive sleep apnea (adult) (pediatric); I10 Essential (primary) hypertension; K21.9 Gastro-esophageal reflux disease without esophagitis; E78.00 Pure hypercholesterolemia, unspecified; Z79.82 Long term (current) use of aspirin; Z90.49 Acquired absence of other specified parts of digestive tract; Z91.040 Latex allergy status; Z83.3 Family history of diabetes mellitus; Z82.3 Family history of stroke; Z82.49 Family history of ischemic heart disease and other diseases of the circulatory system

== ENCOUNTER 2016-08-17 00:24 | Observation (INO) | payer OTHER ==
[~2016-08-17] VITALS: Ht 157.5 cm; Wt 74.0 kg
[~2016-08-17 00:24] MED LIST changes: +OMEP20CA9 PO; -OMEP20TA14 PO
[2016-08-17 01:19] LABS: BASO % 0.2 %; BASO ABS # 0.02 K/uL (0-0.2); COMPLETE YES; EOS % 1.7 %; HEMATOCRIT 44.2 % (37-47); IG% 0.1 %; LYMPH % 15.7 %; LYMPH ABS # 1.54 K/uL (1.2-3.4); MEAN CELL VOLUME 88.6 fL (80-100); MEAN CORPUSCULAR HEMOGLOBIN 30.1 pg (25-34); MEAN CORPUSCULAR HGB CONC 33.9 g/dl (32-36); MEAN PLATELET VOLUME 9.1 fL (7.4-10.4); MONO % 6.4 %; NEUT % 75.9 %; PLATELET COUNT 233 K/uL (130-400); RED BLOOD COUNT 4.99 M/uL (4.2-5.4); WHITE BLOOD COUNT 9.79 K/uL (4.8-10.8)
[2016-08-17] MEDS ORDERED: SODIUM CHLORIDE 0.9% 1000ML 1,000 ML IV ONE (01:30)
[2016-08-17 01:34] LABS: URINE APPEARANCE CLEAR (CLEAR); URINE BILIRUBIN NEG (NEG); URINE COLOR YELLOW; URINE NITRITE NEG (NEG); URINE SPECIFIC GRAVITY 1.017 (1.000-1.030); UROBILINOGEN NEG (NEG); ZZUR CULT IF INDIC CLEAN CATCH NO
[2016-08-17 01:35] LABS: BUN/CREATININE RATIO 14.2 (10-20); CALCIUM 8.9 mg/dl (8.5-10.1); CREATININE 0.86 mg/dl (0.60-1.20); POTASSIUM 3.6 mmol/L (3.5-5.1)
[2016-08-17 01:38] LABS: ALB/GLOB RATIO 1.1 (0.9-2)
[2016-08-17 01:40] LABS: MANUAL MICROSCOPIC REQUIRED? NO; REVIEW REQ? NO
--- NOTE | 2016-08-17 03:41 | EMERGENCY ROOM VISIT NOTE ---
ED Visit Note First contact with patient: 01:13 I saw this patient in conjunction with Ronald Grace PA-C. I agree with his decision-making and treatment plan.
[2016-08-17 04:03] LABS: MAGNESIUM 2.4 mg/dl (1.8-2.4)
[2016-08-17 04:06] LABS: PARTIAL THROMBOPLASTIN RATIO 1.1
[2016-08-17] MEDS ORDERED: IV FLUIDS COMPLETED PRN (04:30)
--- NOTE | 2016-08-17 04:41 | History and Physical ---
History & Physical Date & Time of Service: Aug 17, 2016 at 04:41 Chief Complaint: Heart Pain Primary Care Physician: Maria L Escobar M.D. History of Present Illness Source: patient, clinic records, hospital records Recent confinement March, for atypical chest pain attributed to reflux and anxiety. Yesterday, patient noted epigastric chest discomfort achy with nausea not exactly like heartburn. No shortness of breath, patient felt sweaty. Not pleuritic. Spontaneous resolution although patient still felt nauseous. A few hours later patient noted posterior neck shoulder pain. SBP 190s at home, heart rate 105 as per partner. Patient compliant with home meds. PPI just taken for heartburn. Usual stress at home and work. Patient currently comfortable at the emergency room. Past Medical/Surgical History Medical Problems: (1) GERD (gastroesophageal reflux disease) Status: Chronic (2) High cholesterol Status: Chronic (3) HISTORY OF past TOBACCO USE Status: Chronic (4) HTN (hypertension) Status: Chronic (5) MITRAL VALVE DISORDER Status: Chronic (6) OBSTRUCTIVE SLEEP APNEA (ADULT) (PEDIATRIC) Status: Chronic TTE 04/2015 Interpretation Summary * The left ventricle is normal in size. * Ejection Fraction = 60-65%. The left ventricular ejection fraction increases normally with stress. The left ventricular end-systolic cavity size reduces post-stress (normal response). The left ventricular wall motion with stress is normal. Grade I diastolic dysfunction, (abnormal relaxation pattern). No significant valvular disease. Surgical Problems: cholecystectomy Status: Chronic Orthopedic procedure Urologic procedure Family History Diabetes mellitus BROTHER FH: aortic dissection FATHER FH: cancer MOTHER (cervical) BROTHER (intestines) Stroke FATHER Social History Smoking Status: Former Smoker Alcohol Use: occasionally Drug Use: none Marital Status: in relationship Housing status: lives with family, lives with significant other Occupational Status: employed, other (office work) Immunizations History of Influenza Vaccine: Yes Influenza Vaccine Date: Nov 12, 2015 History of Tetanus Vaccine?: Yes Tetanus Immunization Date: Apr 15, 2010 History of Pneumococcal: No Pneumococcal Date: Nov 30, 2014 History of Hepatitis B Vaccine: Unknown Multi-Drug Resistant Organisms History of MDRO: No Allergies Coded Allergies: Latex1 -Allergic Contact Dermititis (Unverified Allergy, Intermediate, RASH, PRURITIS, 08/17/16) Aspartame (Verified Adverse Reaction, Unknown, n/v violent bar, 08/17/16) Erythromycin (Verified Adverse Reaction, Unknown, HEADACHE AND GI SYMPTOMS , 08/17/16) Neomycin (Verified Adverse Reaction, Unknown, "makes things worse when i use it", 08/17/16) Home Medications Scheduled Amlodipine Besylate (Amlodipine Besylate), 5 MG PO QAM Aspirin (Aspir-81), 81 MG PO QAM Atorvastatin (Lipitor), 10 MG PO HS Metoprolol Succ (Toprol Xl) (Toprol-Xl), 0.5 TAB PO HS Scheduled PRN Alprazolam (Xanax), 0.25 MG PO UD PRN for 1 hour pre flight Lorazepam (Ativan), 0.5 MG PO DAILY PRN for Anxiety Omeprazole (Prilosec), 20 MG PO DAILY PRN for Heartburn Zolpidem Tartrate (Zolpidem Tartrate), 5 MG PO HS PRN for Sleep Review of Systems As per history of present illness, all other ROS negative Physical Exam Vital Signs Date Time Temp Pulse Resp B/P (MAP) Pulse Ox O2 Delivery O2 Flow Rate FiO2 08/17/16 04:02 77 19 119/60 95 Room Air 08/17/16 02:13 84 18 123/70 96 Room Air 08/17/16 00:42 36.5 88 19 146/84 95 Room Air General Appearance: + obese, + pertinent finding (slightly anxious, looks younger for stated age) Head: normocephalic Eyes: normal inspection Neck: + pertinent finding (short) Respiratory/Chest: lungs clear Cardiovascular: regular rate, rhythm Abdomen/GI: + pertinent finding (epigastric tenderness) Extremities/Musculoskelatal: + pertinent finding (bilateral LE edema, no tenderness) Diagnostics Laboratory Results Results Past 24 Hours Test 08/17/16 01:00 08/17/16 01:10 08/17/16 01:20 Range/Units White Blood Count 9.79 4.8-10.8 K/uL Red Blood Count 4.99 4.2-5.4 M/uL Hemoglobin 15.0 12.0-16.0 g/dL Hematocrit 44.2 37-47 % Mean Corpuscular Volume 88.6 80-100 fL Mean Corpuscular Hemoglobin 30.1 25-34 pg Mean Corpuscular Hemoglobin Concent 33.9 32-36 g/dl Platelet Count 233 130-400 K/uL Mean Platelet Volume 9.1 7.4-10.4 fL Neutrophils (%) (Auto) 75.9 % Lymphocytes (%) (Auto) 15.7 % Monocytes (%) (Auto) 6.4 % Eosinophils (%) (Auto) 1.7 % Basophils (%) (Auto) 0.2 % Neutrophils # (Auto) 7.42 1.4-6.5 K/uL Lymphocytes # (Auto) 1.54 1.2-3.4 K/uL Monocytes # (Auto) 0.63 0.11-0.59 K/uL Eosinophils # (Auto) 0.17 0-0.5 K/uL Basophils # (Auto) 0.02 0-0.2 K/uL RDW Standard Deviation 45.0 36.4-46.3 fL RDW Coefficient of Variation 13.8 11.5-14.5 % Immature Granulocyte % (Auto) 0.1 % Immature Granulocyte # (Auto) 0.01 0.00-0.02 K/uL Activated Partial Thromboplast Time 27.3 21.0-31.0 SECONDS Partial Thromboplastin Ratio 1.1 Sodium Level 143 136-145 mmol/L Potassium Level 3.6 3.5-5.1 mmol/L Chloride Level 111 98-107 mmol/L Carbon Dioxide Level 26 21-32 mmol/L Anion Gap 6.0 3-11 mmol/L Blood Urea Nitrogen 12 7-18 mg/dl Creatinine 0.86 0.60-1.20 mg/dl Est Creatinine Clear Calc Drug Dose 59.0 ml/min Estimated GFR () 80.5 Estimated GFR (Non- 69.4 BUN/Creatinine Ratio 14.2 10-20 Random Glucose 125 70-99 mg/dl Calcium Level 8.9 8.5-10.1 mg/dl Magnesium Level 2.4 1.8-2.4 mg/dl Total Bilirubin 0.3 0.2-1 mg/dl Aspartate Amino Transf (AST/SGOT) 17 15-37 U/L Alanine Aminotransferase (ALT/SGPT) 29 12-78 U/L Alkaline Phosphatase 92 45-117 U/L Total Protein 7.2 6.4-8.2 gm/dl Albumin 3.7 3.4-5.0 gm/dl Globulin 3.5 2.5-4.0 gm/dl Albumin/Globulin Ratio 1.1 0.9-2 Lipase 162 73-393 U/L Bedside Troponin I < 0.030 0-0.045 ng/ml Urine Color YELLOW Urine Appearance CLEAR CLEAR Urine pH 7.0 4.5-7.5 Urine Specific [place] 1.017 1.000-1.030 Urine Protein NEG NEG Urine Glucose (UA) NEG NEG Urine Ketones NEG NEG Urine Occult Blood NEG NEG Urine Nitrite NEG NEG Urine Bilirubin NEG NEG Urine Urobilinogen NEG NEG Urine Leukocyte Esterase SMALL NEG Urine WBC (Auto) 1-5 0-5 /hpf Urine RBC (Auto) 0-4 0-4 /hpf Urine Hyaline Casts (Auto) 0 0-5 /lpf Urine Epithelial Cells (Auto) 5-10 0-5 /lpf Urine Bacteria (Auto) NEG NEG Diagnostic Radiology Chest x-ray as per my read : No acute pathology EKG EKG as per my read normal sinus rhythm, first-degree AV block, no ischemia Impression Assessment and Plan AP Atypical chest pain likely secondary to GERD Hypertension, elevated at home secondary to discomfort, px currently normotensive PSVT sp ablation as per records Past tobacco abuse Observation PCU Daily PPI for now Follow-up troponin, Cardio consult RE chest pain (patient known to Dr. De Jesus) DVT prophylaxis Lovenox subcutaneous Full code VTE Prophylaxis VTE Risk Assessment Done? Y/N: Yes Risk Level: Moderate
[2016-08-17] MEDS ORDERED: TRAMADOL HCL 50 MG TAB PO PRN (04:45)
[2016-08-17] MEDS ORDERED: NITROGLYCERIN 0.4 MG SL PER TAB CHARGE SL PRN (04:45)
[2016-08-17] MEDS ORDERED: ONDANSETRON INJ 2 MG/ML 2 ML VIAL IV PRN (04:45)
[2016-08-17] MEDS ORDERED: LACTATED RINGER'S 1000ML 1,000 ML IV ONE (04:45)
[2016-08-17] MEDS ORDERED: MoRPHine SULFATE 4 MG/ML 1 ML CARP\\VIAL IV PRN (04:45)
[2016-08-17] MEDS ORDERED: ZOLPIDEM TARTRATE 5 MG TAB PO PRN (04:45)
[2016-08-17] MEDS ORDERED: ACETAMINOPHEN 325 MG TAB PO PRN (04:45)
[2016-08-17] MEDS ORDERED: LORAZEPAM 2 MG/ML 1 ML VIAL IV PRN (04:45)
[2016-08-17 04:53] VITALS: O2SAT 97
[2016-08-17 04:59] VITALS: BP 145/85; PULSE 87; TEMP 36.5; Ht 157.5 cm; Wt 74.0 kg
[2016-08-17] MEDS ORDERED: POTASSIUM CHLORIDE 10 MEQ TABCR PO ONE (05:45)
[2016-08-17] MEDS ORDERED: PANTOprazole SOD 40 MG TAB PO ONE (05:45)
[2016-08-17 06:36] LABS: PROTHROMBIN TIME (PATIENT) 10.3 SECONDS (9.0-12.0)
[2016-08-17 07:17] VITALS: BP 130/80; PULSE 72; TEMP 36.5; O2SAT 96
--- NOTE | 2016-08-17 08:37 | DIAGNOSTIC IMAGING REPORT ---
TWO VIEW CHEST CLINICAL HISTORY: Dizziness. Atypical chest pain. FINDINGS: PA and lateral chest radiographs are compared to study dated 04/09/2016. The cardiomediastinal silhouette is unremarkable. There is left basilar atelectasis. The lungs and pleural spaces are otherwise clear. There is no pneumothorax. The skeletal structures are osteopenic. Mild degenerative change is noted throughout the thoracic spine. Cholecystectomy clips are noted in the right upper quadrant. IMPRESSION: No active disease in the chest. Electronically signed by: Shan Corona M.D. 08/17/2016 8:36 AM Dictated Date/Time: 08/17/2016 8:35 AM
[2016-08-17] MEDS ORDERED: ASPIRIN 81 MG ECTAB PO SCH (09:00)
[2016-08-17] MEDS ORDERED: AMLODIPINE BESYLATE 5 MG TAB PO SCH (09:00)
[2016-08-17] MEDS ORDERED: ENOXAPARIN 40 MG/0.4 ML SYR SC SCH (09:00)
--- NOTE | 2016-08-17 10:27 | Cardiology Consultation ---
Cardiology Consultation Date of Consultation: Aug 17, 2016 Requesting Physician: Jamie Attending Supervisor Fish Processing: Danette History of Present Illness Patient is a 70 year old female with atypical chest pain. Most likely related to GERD or esophageal reflux. No prior history of CAD but does have history of SVT treated with ablation. Follows with Dr. De Jesus. History Past Medical History: Medical History Diagnosis Date Comment Dyslipidemia, goal LDL below 100 2008 HTN (hypertension) Insomnia, unspecified 2007 MVP (mitral valve prolapse) Reflux esophagitis 08/2011 mild inflammation Surgical History Procedure Laterality Date Comment COLONOSCOPY, DIAGNOSTIC (RECTUM) 05/31/10 normal exam. repeat in 10 years CYSTO/URETERO W/LITHOTRIPSY 08-03-2014 CYSTOSCOPY 08-08-2014 DILATION AND CURETTAGE (D&C) 03/03/2016 EGD, FLEXIBLE, DIAGNOSTIC 09/04/2011 UPPER GI ENDOSCOPY DIAGNOSTIC performed by Todd Balbuena MD at ENDOSCOPY [facility] EGD, FLEXIBLE, W/BIOPSY 05/31/10 await BX--mild inflammation end of esophagus- -no evidence of gastritis or infection LAPAROSCOPY; CHOLECYSTECTOMY 05/16/09 laparoscopic cholecystectomy, cholangiogram 05/16/09 [facility], Dr. Polo MISCELLANEOUS ORDER SVT ablation Past Surgical History: Social History: Social History Family and Education Marital Status Tobacco Use Former Smoker; Quit 02/25/1963; Smoked: Cigarettes. Smokeless Tobacco: Never used smokeless tobacco. Comments: Patient smoked occasionally in high school Alcohol Use Yes. Comments: socially, 1-2 times a week Drug Use No. Sexual Activity Sexually active; Male partners. Social Documentation [employer] Family History: Family History Problem Relation Age of Onset Comments Cancer Brother Removed 20'' of lower intestines and it had not sp Cancer Mother Cervical Cancer Mother cervical Cancer Other Multiple cousins with breast and ovarian cancer Cancer Uncle Colon Diabetes Brother Type 2 Gastro-intestinal disorder Brother H. Hernia Gastro-intestinal disorder Father H.hernia Gastro-intestinal disorder Mother H. hernia / acid reflux Heart Disorder Father Aortic Dissection Heart Disorder Father Aortic dysection Stroke Father mini strokes Thyroid Disorder Mother low levels Past Medical/Surgical History Problem List: Medical Problems: (1) Chest pain (2) GERD (gastroesophageal reflux disease) (3) High cholesterol (4) HISTORY OF TOBACCO USE (5) HTN (hypertension) (6) MITRAL VALVE DISORDER (7) OBSTRUCTIVE SLEEP APNEA (ADULT) (PEDIATRIC) Surgical Problems: (1) H/O colonoscopy (2) H/O esophagogastroduodenoscopy (3) History of radiofrequency ablation procedure for cardiac arrhythmia (4) S/P cholecystectomy Review Of Systems General: The patient denies weight change, night sweats, fever, chills. Head: The patient denies headache and prior head trauma. Cardiovascular: The patient denies chest pain or chest discomfort, dyspnea on exertion, palpitations, PND, orthopnea, edema, spontaneous shortness of breath, syncope and near syncope. Pulmonary: The patient denies cough, wheeze, pleurisy, hemoptysis, sputum, and excessive snoring. Gastrointestinal: The patient denies nausea, vomiting, diarrhea, constipation, bloating, hematemesis, hematochezia, and abdominal pain. Skin: The patient denies diaphoresis and rash. Musculoskeletal: The patient denies joint pain, joint swelling, myalgia, back pain, neck pain and prior injuries. Neurological: The patient denies prior stroke and seizures Allergies Coded Allergies: Latex1 -Allergic Contact Dermititis (Unverified Allergy, Intermediate, RASH, PRURITIS, 08/17/16) Aspartame (Verified Adverse Reaction, Unknown, n/v violent bar, 08/17/16) Erythromycin (Verified Adverse Reaction, Unknown, HEADACHE AND GI SYMPTOMS , 08/17/16) Neomycin (Verified Adverse Reaction, Unknown, "makes things worse when i use it", 08/17/16) Medications Reported Home Medications Medications Dose Route/Sig Max Daily Dose Days Date Category Prilosec (Omeprazole) 20 Mg Cap 20 Mg PO DAILY PRN 04/09/16 Reported Lipitor (Atorvastatin Calcium) 10 Mg Tab 10 Mg PO HS 04/29/15 Reported Aspir-81 (Aspirin) 81 Mg Tab 81 Mg PO QAM 07/25/14 Reported Xanax (Alprazolam) 0.25 Mg Tab 0.25 Mg PO UD PRN 07/25/14 Reported Toprol-Xl (Metoprolol Succinate) 25 Mg Tabcr 0.5 Tab PO HS 07/23/14 Reported Amlodipine Besylate 5 Mg Tab 5 Mg PO QAM 03/13/14 Reported Zolpidem Tartrate 5 Mg Tab 5 Mg PO HS PRN 03/13/14 Reported Ativan (Lorazepam) 0.5 Mg Tab 0.5 Mg PO DAILY PRN 03/10/12 Reported Physical Exam Vital Signs (Last 8hrs): Last 8 Hrs Date Time Temp Pulse Resp B/P (MAP) Pulse Ox O2 Delivery O2 Flow Rate FiO2 08/17/16 08:00 Room Air 08/17/16 07:17 36.5 72 20 130/80 (97) 96 Room Air 08/17/16 04:59 36.5 87 19 145/85 Room Air 08/17/16 04:53 80 19 137/84 97 08/17/16 04:02 77 19 119/60 95 Room Air General Appearance: Alert and Oriented x3. NAD. Head: Normocephalic Atraumatic. Eyes: PERRLA, EOMI, conjunctiva and sclera clear Neck: Supple. No carotid bruits noted. No JVD. No HJD. Respiratory: Breath sounds clear to auscultation bilaterally. No w/r/r. Cardiovascular: Reg rate and rhythm. S1 and S2 noted. No murmurs, rubs, gallops. PMI non displace. Abdomen: Normal bowel sounds, soft nontender. no abdominal bruits. Extremities: No edema, no clubbing or cyanosis. distal pulses 2/4 bilaterally. Neuro: No focal deficits. Psychiatric: Normal affect. Data Last 24 Hours Test 08/17/16 01:00 08/17/16 01:10 08/17/16 01:20 08/17/16 05:53 White Blood Count 9.79 K/uL Red Blood Count 4.99 M/uL Hemoglobin 15.0 g/dL Hematocrit 44.2 % Mean Corpuscular Volume 88.6 fL Mean Corpuscular Hemoglobin 30.1 pg Mean Corpuscular Hemoglobin Concent 33.9 g/dl Platelet Count 233 K/uL Mean Platelet Volume 9.1 fL Neutrophils (%) (Auto) 75.9 % Lymphocytes (%) (Auto) 15.7 % Monocytes (%) (Auto) 6.4 % Eosinophils (%) (Auto) 1.7 % Basophils (%) (Auto) 0.2 % Neutrophils # (Auto) 7.42 K/uL Lymphocytes # (Auto) 1.54 K/uL Monocytes # (Auto) 0.63 K/uL Eosinophils # (Auto) 0.17 K/uL Basophils # (Auto) 0.02 K/uL RDW Standard Deviation 45.0 fL RDW Coefficient of Variation 13.8 % Immature Granulocyte % (Auto) 0.1 % Immature Granulocyte # (Auto) 0.01 K/uL Activated Partial Thromboplast Time 27.3 SECONDS Partial Thromboplastin Ratio 1.1 Sodium Level 143 mmol/L Potassium Level 3.6 mmol/L Chloride Level 111 mmol/L Carbon Dioxide Level 26 mmol/L Anion Gap 6.0 mmol/L Blood Urea Nitrogen 12 mg/dl Creatinine 0.86 mg/dl Est Creatinine Clear Calc Drug Dose 59.0 ml/min Estimated GFR () 80.5 Estimated GFR (Non- 69.4 BUN/Creatinine Ratio 14.2 Random Glucose 125 mg/dl Calcium Level 8.9 mg/dl Magnesium Level 2.4 mg/dl Total Bilirubin 0.3 mg/dl Aspartate Amino Transf (AST/SGOT) 17 U/L Alanine Aminotransferase (ALT/SGPT) 29 U/L Alkaline Phosphatase 92 U/L Total Protein 7.2 gm/dl Albumin 3.7 gm/dl Globulin 3.5 gm/dl Albumin/Globulin Ratio 1.1 Lipase 162 U/L Bedside Troponin I < 0.030 ng/ml Urine Color YELLOW Urine Appearance CLEAR Urine pH 7.0 Urine Specific [place] 1.017 Urine Protein NEG Urine Glucose (UA) NEG Urine Ketones NEG Urine Occult Blood NEG Urine Nitrite NEG Urine Bilirubin NEG Urine Urobilinogen NEG Urine Leukocyte Esterase SMALL Urine WBC (Auto) 1-5 /hpf Urine RBC (Auto) 0-4 /hpf Urine Hyaline Casts (Auto) 0 /lpf Urine Epithelial Cells (Auto) 5-10 /lpf Urine Bacteria (Auto) NEG Prothrombin Time 10.3 SECONDS Prothromb Time International Ratio 1.0 Test 08/17/16 08:45 EKG:sinus rjythm with 1 degree av block. poor r-wave progression across precordium due to lead placement Assessment & Plan 1. Atypical chest pain. 2. GERD 3. Hypertension Plan: If cardiac markers are negative, then patient can be discharged to outpatient follow-up and possible stress testing as outpatient.
[2016-08-17 11:21] VITALS: BP 122/74; PULSE 78; TEMP 36.7; O2SAT 95
[2016-08-17 14:56] VITALS: BP 134/77; PULSE 73; TEMP 36.9; O2SAT 96
--- NOTE | 2016-08-17 18:12 | Progress Note ---
Medicine Progress Note Date & Time of Visit: Aug 17, 2016 at 18:12 . Subjective Doing well. No chest pain, shortness of breath, palpitations, nausea, vomiting. . Objective Last 8 Hrs Date Time Temp Pulse Resp B/P (MAP) Pulse Ox O2 Delivery O2 Flow Rate FiO2 08/17/16 14:56 36.9 73 18 134/77 (96) 96 Room Air 08/17/16 11:21 36.7 78 18 122/74 (90) 95 Room Air Physical Exam: General- no distress Neck- no JVD Lungs- clear Heart- regular, no gallop Abdomen- normal bowel sounds, soft, nontender Extremities- no pretibial edema or calf tenderness Neuro- alert . Laboratory Results: Last 24 Hours Test 08/17/16 01:00 08/17/16 01:10 08/17/16 01:20 08/17/16 05:53 White Blood Count 9.79 K/uL Red Blood Count 4.99 M/uL Hemoglobin 15.0 g/dL Hematocrit 44.2 % Mean Corpuscular Volume 88.6 fL Mean Corpuscular Hemoglobin 30.1 pg Mean Corpuscular Hemoglobin Concent 33.9 g/dl Platelet Count 233 K/uL Mean Platelet Volume 9.1 fL Neutrophils (%) (Auto) 75.9 % Lymphocytes (%) (Auto) 15.7 % Monocytes (%) (Auto) 6.4 % Eosinophils (%) (Auto) 1.7 % Basophils (%) (Auto) 0.2 % Neutrophils # (Auto) 7.42 K/uL Lymphocytes # (Auto) 1.54 K/uL Monocytes # (Auto) 0.63 K/uL Eosinophils # (Auto) 0.17 K/uL Basophils # (Auto) 0.02 K/uL RDW Standard Deviation 45.0 fL RDW Coefficient of Variation 13.8 % Immature Granulocyte % (Auto) 0.1 % Immature Granulocyte # (Auto) 0.01 K/uL Activated Partial Thromboplast Time 27.3 SECONDS Partial Thromboplastin Ratio 1.1 Sodium Level 143 mmol/L Potassium Level 3.6 mmol/L Chloride Level 111 mmol/L Carbon Dioxide Level 26 mmol/L Anion Gap 6.0 mmol/L Blood Urea Nitrogen 12 mg/dl Creatinine 0.86 mg/dl Est Creatinine Clear Calc Drug Dose 59.0 ml/min Estimated GFR () 80.5 Estimated GFR (Non- 69.4 BUN/Creatinine Ratio 14.2 Random Glucose 125 mg/dl Calcium Level 8.9 mg/dl Magnesium Level 2.4 mg/dl Total Bilirubin 0.3 mg/dl Aspartate Amino Transf (AST/SGOT) 17 U/L Alanine Aminotransferase (ALT/SGPT) 29 U/L Alkaline Phosphatase 92 U/L Troponin I < 0.015 ng/ml Total Protein 7.2 gm/dl Albumin 3.7 gm/dl Globulin 3.5 gm/dl Albumin/Globulin Ratio 1.1 Lipase 162 U/L Bedside Troponin I < 0.030 ng/ml Urine Color YELLOW Urine Appearance CLEAR Urine pH 7.0 Urine Specific [place] 1.017 Urine Protein NEG Urine Glucose (UA) NEG Urine Ketones NEG Urine Occult Blood NEG Urine Nitrite NEG Urine Bilirubin NEG Urine Urobilinogen NEG Urine Leukocyte Esterase SMALL Urine WBC (Auto) 1-5 /hpf Urine RBC (Auto) 0-4 /hpf Urine Hyaline Casts (Auto) 0 /lpf Urine Epithelial Cells (Auto) 5-10 /lpf Urine Bacteria (Auto) NEG Prothrombin Time 10.3 SECONDS Prothromb Time International Ratio 1.0 Test 08/17/16 16:25 Troponin I < 0.015 ng/ml Other Studies: EKG performed at 07:42 reviewed and demonstrated normal sinus rhythm at 70/ minute, first-degree AV block, no acute ST or T-wave abnormalities. . Assessment & Plan CHEST PAIN Patient experienced chest pain after eating. Came to ED for evaluation. No acute EKG changes. Troponins negative. Seen in consultation by Cardiology. Orma that symptoms were most likely noncardiac- patient has history of hiatal hernia and GERD. Outpatient stress test recommended. Consider GI evaluation if symptoms recur. HYPERTENSION Continue amlodipine and metoprolol. GERD Continue PPI. VTE PROPHYLAXIS SQ enoxaparin. Ambulating. DISPOSITION Discharge to home. Internal Medicine follow-up with Dr. Maria L Escobar. . Consultants: Cardiology with Dr. Samaniego. . Procedures: cardiac monitoring . Current Inpatient Medications: Current Inpatient Medications Medications (Trade) Dose Ordered Sig/Doris Route Start Time Stop Time Status Last Admin Dose Admin Miscellaneous (Iv Fluids Completed) 1 ea PRN PRN N/A 08/17/16 04:30 08/17/17 04:29 Enoxaparin Sodium (Lovenox Inj) 40 mg Q24H SC 08/17/16 09:00 09/16/16 08:59 Acetaminophen (Tylenol Tab) 650 mg Q4H PRN PO 08/17/16 04:45 09/16/16 04:44 Nitroglycerin (Nitrostat Tab) 0.4 mg UD PRN SL 08/17/16 04:45 09/16/16 04:44 Amlodipine Besylate (Norvasc Tab) 5 mg QAM PO 08/17/16 09:00 09/16/16 08:59 08/17/16 08:19 5 MG Aspirin (Ecotrin Tab) 81 mg QAM PO 08/17/16 09:00 09/16/16 08:59 08/17/16 08:19 81 MG Atorvastatin Calcium (Lipitor Tab) 10 mg HS PO 08/17/16 21:00 09/16/16 20:59 Zolpidem Tartrate (Ambien Tab) 5 mg HS PRN PO 08/17/16 04:45 09/16/16 04:44 Metoprolol Succinate (Toprol Xl Tab) 12.5 mg HS PO 08/17/16 21:00 09/16/16 20:59 Ondansetron HCl (Zofran Inj) 4 mg Q6H PRN IV 08/17/16 04:45 09/16/16 04:44 Tramadol HCl (Ultram Tab) 25 mg Q6H PRN PO 08/17/16 04:45 09/16/16 04:44 Morphine Sulfate (MoRPHine SULFATE INJ) 4 mg Q3H PRN IV 08/17/16 04:45 08/31/16 04:44 Lorazepam (Ativan Inj) 0.5 mg Q4H PRN IV 08/17/16 04:45 09/16/16 04:44 Lactated Ringer's 1,000 ml @ 60 mls/hr [id number] ONCE IV 08/17/16 04:45 08/17/16 21:24 08/17/16 06:27 60 MLS/HR
--- NOTE | 2016-08-17 18:19 | Discharge Instructions ---
Discharge Instructions Date of Service Aug 17, 2016. Admission Reason for Admission: chest pain . Discharge Discharge Diagnosis / Problem: chest pain, probably due to hiatal hernia or acid reflux Discharge Goals Goal(s): Decrease discomfort Activity Recommendations Activity Limitations: resume your previous activity . Instructions / Follow-Up Instructions / Follow-Up APPOINTMENTS: INTERNAL MEDICINE 08/28/2016 11:20 AM Maria L Escobar MD INSTRUCTIONS: There was no sign of a heart attack. Try antacids like Maalox plus if you have similar symptoms in the future. Please ask Dr. Escobar to schedule an outpatient stress test for you. If you continue to have chest discomfort after eating, consider upper GI series or upper endoscopy to check out your esophagus. Seek medical attention if you have: * chest pain or trouble breathing * abdominal pain, nausea, vomiting * diarrhea, dark stools or bloody stools * any unanswered questions or concerns Call 911 if symptoms are severe. Call if you have any questions or problems. My cell # is [phone]. You can also reach a [facility] hospitalist on duty at [facility] 24 hours a day by calling [phone]. Please take good care of yourself. Pedrito Ayala . Current Hospital Diet Patient's current hospital diet: AHA Diet (Heart Healthy) Discharge Diet Recommended Diet: AHA Diet (Heart Healthy) Pending Studies Studies pending at discharge: no Medical Emergencies . Who to Call and When: Medical Emergencies: If at any time you feel your situation is an emergency, please call 911 immediately. . Non-Emergent Contact Non-Emergency issues call your: Primary Care Provider, Hospital Doctor . . "Provider Documentation" section prepared by Pedrito Ayala. . VTE Core Measure Inpt VTE Proph given/why not?: Refusal of treatmnt by pt [place] Drug Monitoring Program Search Results: patient reviewed within database, no issues identified
[2016-08-17 18:26] VITALS: BP 134/77; PULSE 73; TEMP 36.9; O2SAT 96
--- NOTE | 2016-08-17 19:22 | Discharge Summary ---
Discharge Summary Date of Service Aug 17, 2016. Discharge Summary Admission Date: Aug 17, 2016 at 05:25 Discharge Date: Aug 17, 2016 Discharge Disposition: Home Principal Diagnosis: chest pain, noncardiac . Secondary Diagnoses/Problems: Chronic and Resolved Medical Problems: (1) GERD (gastroesophageal reflux disease) Status: Chronic (2) High cholesterol Status: Chronic (3) HISTORY OF TOBACCO USE Status: Chronic (4) HTN (hypertension) Status: Chronic (5) MITRAL VALVE DISORDER Status: Chronic (6) OBSTRUCTIVE SLEEP APNEA (ADULT) (PEDIATRIC) Status: Chronic Surgical Problems: (1) H/O colonoscopy Permanent Comment: normal repeat in 10 - 2010 Status: Chronic (2) H/O esophagogastroduodenoscopy Status: Chronic (3) History of radiofrequency ablation procedure for cardiac arrhythmia Status: Chronic (4) S/P cholecystectomy Status: Chronic . Procedures: cardiac monitoring . Consultations: Cardiology with Dr. Samaniego. . Pending Studies/Follow-Up: Please arrange for outpatient treadmill stress echo. . Medication Reconciliation Continued Medications: Alprazolam (Xanax) 0.25 Mg Tab 0.25 MG PO UD PRN for 1 hour pre flight, TAB Amlodipine Besylate (Amlodipine Besylate) 5 Mg Tab 5 MG PO QAM Aspirin (Aspir-81) 81 Mg Tab 81 MG PO QAM Atorvastatin (Lipitor) 10 Mg Tab 10 MG PO HS, TAB Lorazepam (Ativan) 0.5 Mg Tab 0.5 MG PO DAILY PRN for Anxiety Metoprolol Succ (Toprol Xl) (Toprol-Xl) 25 Mg Tabcr 0.5 TAB PO HS, #30 TAB Omeprazole (Prilosec) 20 Mg Cap 20 MG PO DAILY PRN for Heartburn, 5 Refills Zolpidem Tartrate (Zolpidem Tartrate) 5 Mg Tab 5 MG PO HS PRN for Sleep Admission Information HPI (per Admitting provider): Recent confinement March, for atypical chest pain attributed to reflux and anxiety. Yesterday, patient noted epigastric chest discomfort achy with nausea not exactly like heartburn. No shortness of breath, patient felt sweaty. Not pleuritic. Spontaneous resolution although patient still felt nauseous. A few hours later patient noted posterior neck shoulder pain. SBP 190s at home, heart rate 105 as per partner. Patient compliant with home meds. PPI just taken for heartburn. Usual stress at home and work. Patient currently comfortable at the emergency room. . Physical Exam (per Admitting): General Appearance: + obese, + pertinent finding (slightly anxious, looks younger for stated age) Head: normocephalic Eyes: normal inspection Neck: + pertinent finding (short) Respiratory/Chest: lungs clear Cardiovascular: regular rate, rhythm Abdomen/GI: + pertinent finding (epigastric tenderness) Extremities/Musculoskelatal: + pertinent finding (bilateral LE edema, no tenderness) Hospital Course CHEST PAIN Patient experienced chest pain after eating. Came to ED for evaluation. No acute EKG changes. Troponins negative. Seen in consultation by Cardiology. [place] that symptoms were most likely noncardiac- patient has history of hiatal hernia and GERD. Outpatient stress test recommended. Consider GI evaluation if symptoms recur. HYPERTENSION Continue amlodipine and metoprolol. GERD Continue PPI. VTE PROPHYLAXIS SQ enoxaparin. Ambulating. DISPOSITION Discharge to home. Internal Medicine follow-up with Dr. Maria L Escobar. . Discharge Instructions Date of Service Aug 17, 2016. Admission Reason for Admission: chest pain . Discharge Discharge Diagnosis / Problem: chest pain, probably due to hiatal hernia or acid reflux Discharge Goals Goal(s): Decrease discomfort Activity Recommendations Activity Limitations: resume your previous activity . Instructions / Follow-Up Instructions / Follow-Up APPOINTMENTS: INTERNAL MEDICINE 08/28/2016 11:20 AM Maria L Escobar MD INSTRUCTIONS: There was no sign of a heart attack. Try antacids like Maalox plus if you have similar symptoms in the future. Please ask Dr. Escobar to schedule an outpatient stress test for you. If you continue to have chest discomfort after eating, consider upper GI series or upper endoscopy to check out your esophagus. Seek medical attention if you have: * chest pain or trouble breathing * abdominal pain, nausea, vomiting * diarrhea, dark stools or bloody stools * any unanswered questions or concerns Call 911 if symptoms are severe. Call if you have any questions or problems. My cell # is [phone]. You can also reach a [facility] hospitalist on duty at [facility] 24 hours a day by calling [phone]. Please take good care of yourself. Pedrito Ayala . Current Hospital Diet Patient's current hospital diet: AHA Diet (Heart Healthy) Discharge Diet Recommended Diet: AHA Diet (Heart Healthy) Pending Studies Studies pending at discharge: no Medical Emergencies . Who to Call and When: Medical Emergencies: If at any time you feel your situation is an emergency, please call 911 immediately. . Non-Emergent Contact Non-Emergency issues call your: Primary Care Provider, Hospital Doctor . . "Provider Documentation" section prepared by Pedrito Ayala. . VTE Core Measure Inpt VTE Proph given/why not?: Refusal of treatmnt by pt [place] Drug Monitoring Program Search Results: patient reviewed within database, no issues identified . Additional Copies To Maria L Escobar M.D.
[2016-08-17] MEDS ORDERED: METOPROLOL SUCC 25MG EXT REL TAB PO SCH (21:00)
[2016-08-17] MEDS ORDERED: ATORVASTATIN 10 MG TAB PO SCH (21:00)
--- NOTE | 2016-08-18 01:47 | EMERGENCY ROOM VISIT NOTE ---
History First contact with patient: 01:13 Chief Complaint: ABDOMINAL PAIN Stated Complaint: CHEST PAIN Nursing Triage Summary: Pt reports that at 2200 she became lightheaded, had posterior neck pain, became diaphoretic and developed mid epigastric pain. Episode subsided and pt became nauseated. Pt took aspirin and ativan and took a nap. When she awoke she reported feeling very nauseated and reported epigastric pain rated 1/10. Decided to come to ER. Hx of MS and ablasion. History of Present Illness The patient is a 70 year old female who presents to the Emergency Room with complaints of intermittent episodes of epigastric abdominal pain, diaphoresis, nausea, and chest pain that began going on for the past one day. The patient states that her symptoms began this morning while she was gardening outside. The patient was not doing a lot of physical activity at the time of her onset. She thought her symptoms may have been because of the warm temperature outside, went inside, took aspirin and Ativan, and took a nap. When the patient awoke she felt better but continued with some epigastric discomfort. She states her symptoms have waxed and waned, and they returned approximately 3 hours ago. The patient does have a history of cardiac disease and has followed with [facility] cardiology in the past. She rates her discomfort a dull 1/10. She does not identify aggravating or alleviating factors. Review of Systems More than 10 systems were reviewed and otherwise negative with the exception of history of present illness. Past Medical/Surgical History Medical Problems: (1) Chest pain (2) GERD (gastroesophageal reflux disease) (3) High cholesterol (4) HISTORY OF TOBACCO USE (5) HTN (hypertension) (6) MITRAL VALVE DISORDER (7) OBSTRUCTIVE SLEEP APNEA (ADULT) (PEDIATRIC) Surgical Problems: (1) H/O colonoscopy (2) H/O esophagogastroduodenoscopy (3) History of radiofrequency ablation procedure for cardiac arrhythmia (4) S/P cholecystectomy Family History Diabetes mellitus BROTHER FH: aortic dissection FATHER FH: cancer MOTHER (cervical) BROTHER (intestines) Stroke FATHER Social History Smoking Status: Former Smoker Drug Use: none Marital Status: in relationship Occupation Status: employed, other (office work) Current/Historical Medications Scheduled Amlodipine Besylate (Amlodipine Besylate), 5 MG PO QAM Aspirin (Aspir-81), 81 MG PO QAM Atorvastatin (Lipitor), 10 MG PO HS Metoprolol Succ (Toprol Xl) (Toprol-Xl), 0.5 TAB PO HS Scheduled PRN Alprazolam (Xanax), 0.25 MG PO UD PRN for 1 hour pre flight Lorazepam (Ativan), 0.5 MG PO DAILY PRN for Anxiety Omeprazole (Prilosec), 20 MG PO DAILY PRN for Heartburn Zolpidem Tartrate (Zolpidem Tartrate), 5 MG PO HS PRN for Sleep Allergies Coded Allergies: Latex1 -Allergic Contact Dermititis (Unverified Allergy, Intermediate, RASH, PRURITIS, 08/17/16) Aspartame (Verified Adverse Reaction, Unknown, n/v violent bar, 08/17/16) Erythromycin (Verified Adverse Reaction, Unknown, HEADACHE AND GI SYMPTOMS , 08/17/16) Neomycin (Verified Adverse Reaction, Unknown, "makes things worse when i use it", 08/17/16) Physical Exam Vital Signs Date Time Temp Pulse Resp B/P (MAP) Pulse Ox O2 Delivery O2 Flow Rate FiO2 08/17/16 04:59 36.5 87 19 145/85 Room Air 08/17/16 04:53 80 19 137/84 97 08/17/16 04:02 77 19 119/60 95 Room Air 08/17/16 02:13 84 18 123/70 96 Room Air 08/17/16 00:42 36.5 88 19 146/84 95 Room Air Pain Rating (0-10): 0 Physical Exam VITALS: Vitals are noted on the nurse's note and reviewed by myself. Vital signs stable. GENERAL: Well-developed, well-nourished, white female, who is in no acute distress and resting comfortably. Patient is cooperative with the examination. HEAD: Normocephalic atraumatic. HEART: Regular rate and rhythm without murmurs gallops or rubs. LUNGS: Clear to auscultation bilaterally without wheezes, rales or rhonchi. No retractions or accessory muscle use. ABDOMEN: Positive normal bowel sounds x 4. Soft, nontender, without masses or organomegaly. No guarding or rebound tenderness. MUSCULOSKELETAL: No muscle atrophy, erythema, or edema noted. Full range of motion without joint tenderness in all extremities. Medical Decision & Procedures ER Provider Diagnostic Interpretation: TWO VIEW CHEST CLINICAL HISTORY: Dizziness. Atypical chest pain. FINDINGS: MARIE and lateral chest radiographs are compared to study dated 04/09/2016. The cardiomediastinal silhouette is unremarkable. There is left basilar atelectasis. The lungs and pleural spaces are otherwise clear. There is no pneumothorax. The skeletal structures are osteopenic. Mild degenerative change is noted throughout the thoracic spine. Cholecystectomy clips are noted in the right upper quadrant. IMPRESSION: No active disease in the chest. Laboratory Results 08/17/16 01:00 Red Blood Count 4.99, Mean Corpuscular Volume 88.6, Mean Corpuscular Hemoglobin 30.1, Mean Corpuscular Hemoglobin Concent 33.9, Mean Platelet Volume 9.1, Neutrophils (%) (Auto) 75.9, Lymphocytes (%) (Auto) 15.7, Monocytes (%) (Auto) 6.4, Eosinophils (%) (Auto) 1.7, Basophils (%) (Auto) 0.2, Neutrophils # (Auto) 7.42, Lymphocytes # (Auto) 1.54, Monocytes # (Auto) 0.63, Eosinophils # (Auto) 0.17, Basophils # (Auto) 0.02 08/17/16 01:00 Test 08/17/16 01:00 08/17/16 01:10 08/17/16 01:20 White Blood Count 9.79 K/uL (4.8-10.8) Red Blood Count 4.99 M/uL (4.2-5.4) Hemoglobin 15.0 g/dL (12.0-16.0) Hematocrit 44.2 % (37-47) Mean Corpuscular Volume 88.6 fL (80-100) Mean Corpuscular Hemoglobin 30.1 pg (25-34) Mean Corpuscular Hemoglobin Concent 33.9 g/dl (32-36) Platelet Count 233 K/uL (130-400) Mean Platelet Volume 9.1 fL (7.4-10.4) Neutrophils (%) (Auto) 75.9 % Lymphocytes (%) (Auto) 15.7 % Monocytes (%) (Auto) 6.4 % Eosinophils (%) (Auto) 1.7 % Basophils (%) (Auto) 0.2 % Neutrophils # (Auto) 7.42 K/uL (1.4-6.5) Lymphocytes # (Auto) 1.54 K/uL (1.2-3.4) Monocytes # (Auto) 0.63 K/uL (0.11-0.59) Eosinophils # (Auto) 0.17 K/uL (0-0.5) Basophils # (Auto) 0.02 K/uL (0-0.2) RDW Standard Deviation 45.0 fL (36.4-46.3) RDW Coefficient of Variation 13.8 % (11.5-14.5) Immature Granulocyte % (Auto) 0.1 % Immature Granulocyte # (Auto) 0.01 K/uL (0.00-0.02) Activated Partial Thromboplast Time 27.3 SECONDS (21.0-31.0) Partial Thromboplastin Ratio 1.1 Anion Gap 6.0 mmol/L (3-11) Est Creatinine Clear Calc Drug Dose 59.0 ml/min Estimated GFR () 80.5 Estimated GFR (Non- 69.4 BUN/Creatinine Ratio 14.2 (10-20) Calcium Level 8.9 mg/dl (8.5-10.1) Magnesium Level 2.4 mg/dl (1.8-2.4) Total Bilirubin 0.3 mg/dl (0.2-1) Aspartate Amino Transf (AST/SGOT) 17 U/L (15-37) Alanine Aminotransferase (ALT/SGPT) 29 U/L (12-78) Alkaline Phosphatase 92 U/L (45-117) Total Protein 7.2 gm/dl (6.4-8.2) Albumin 3.7 gm/dl (3.4-5.0) Globulin 3.5 gm/dl (2.5-4.0) Albumin/Globulin Ratio 1.1 (0.9-2) Lipase 162 U/L (73-393) Bedside Troponin I < 0.030 ng/ml (0-0.045) Urine Color YELLOW Urine Appearance CLEAR (CLEAR) Urine pH 7.0 (4.5-7.5) Urine Specific [place] 1.017 (1.000-1.030) Urine Protein NEG (NEG) Urine Glucose (UA) NEG (NEG) Urine Ketones NEG (NEG) Urine Occult Blood NEG (NEG) Urine Nitrite NEG (NEG) Urine Bilirubin NEG (NEG) Urine Urobilinogen NEG (NEG) Urine Leukocyte Esterase SMALL (NEG) Urine WBC (Auto) 1-5 /hpf (0-5) Urine RBC (Auto) 0-4 /hpf (0-4) Urine Hyaline Casts (Auto) 0 /lpf (0-5) Urine Epithelial Cells (Auto) 5-10 /lpf (0-5) Urine Bacteria (Auto) NEG (NEG) Medications Administered Medications (Trade) Dose Ordered Sig/Doris Route Start Time Stop Time Status Last Admin Dose Admin Sodium Chloride 1,000 ml @ 999 mls/hr [id number] ONCE IV 08/17/16 01:30 08/17/16 02:30 DC 08/17/16 01:31 999 MLS/HR Lactated Ringer's 1,000 ml @ 60 mls/hr [id number] ONCE IV 08/17/16 04:45 08/17/16 18:57 DC 08/17/16 06:27 60 MLS/HR ECG Change: Sinus rhythm with 1st degree A-V block @91 bpm Low voltage QRS Borderline ECG When compared with ECG of 09-APR-2016 01:29, No significant change was found Confirmed by GERONIMO HOLLOWAY ([id number]) on 08/17/2016 10:33:42 AM ED Course Physical exam and history were performed. Nursing notes and EMR were reviewed. Patient appears to have atypical chest pain symptoms with intermittent diaphoresis and nausea. The patient is evidently followed with [facility] cardiology in the past. IV access was established and labs were obtained. EKG is as above. Chest x-ray was performed. The patient was hydrated as above and placed on learning coordinator. The patient's blood work is as above and was reviewed. She does not have a significant elevated white cell count, gross anemia, bandemia, or significant electrolyte imbalance. Lipase and transaminases are nondiagnostic. Troponin 1 is negative. I had a lengthy discussion with the patient regarding her symptoms, and I voiced my concern that this could represent an unstable anginal picture. I discussed the case with my attending physician, Dr. Polo, who agrees and also independently evaluated the patient. Because of the patient's comorbidities and possible cardiac symptoms the case was further discussed with the on-call [facility] hospitalist. Please see their dictation for further patient course, plan, and disposition. The chart was completed utilizing [employer] Voice Recognition Software. Grammatical errors, random word insertions, pronoun errors, and incomplete sentences are an occasional consequence of this system due to software limitations, ambient noise, and hardware issues. Any formal questions or concerns about the content, text, or information contained within the body of this dictation should be directly addressed to the provider for clarification. . Medical Decision Differential diagnosis includes, but is not limited to: Myocardial infarction, dysrhythmia, pericarditis, pneumothorax, aortic aneurysm/dissection, DVT/PE, anxiety, GERD, PUD, electrolyte imbalance, thyroid disorder, pneumonia, bronchitis, pancreatitis, and others Impression Primary Impression: Atypical chest pain Departure Information Dispostion Still a Patient Condition FAIR Referrals Maria L Escobar M.D. (PCP) Forms HOME CARE DOCUMENTATION FORM, IMPORTANT VISIT INFORMATION Patient Instructions [facility]
== END 2016-08-17 18:56 | disposition home or self-care (01) ==
LOC: C.EDB 00:25 → ENRESERV 04:36 → C.MED 05:25
PROVIDERS: ADMIT Hospitalist; ATTEND Hospitalist
DX: R07.89 Other chest pain (principal); I44.0 Atrioventricular block, first degree; I34.1 Nonrheumatic mitral (valve) prolapse; I10 Essential (primary) hypertension; E78.5 Hyperlipidemia, unspecified; K21.9 Gastro-esophageal reflux disease without esophagitis; G47.33 Obstructive sleep apnea (adult) (pediatric); Z87.891 Personal history of nicotine dependence; Z79.82 Long term (current) use of aspirin; Z79.899 Other long term (current) drug therapy

== ENCOUNTER → 2017-01-01 | Outpatient (CLI) | payer OTHER ==
[~2017-01-01] MED LIST changes: +ATOR10TA82 PO; -ATOR10TA88 PO
[2017-01-01 12:10] LABS: HEMATOCRIT 42.7 % (37-47); MEAN CORPUSCULAR HEMOGLOBIN 29.4 pg (25-34); MEAN PLATELET VOLUME 9.1 fL (7.4-10.4); PLATELET COUNT 290 K/uL (130-400); WHITE BLOOD COUNT 7.49 K/uL (4.8-10.8)
== END | disposition home or self-care (01) ==
LOC: C.LAB1850 09:44
PROVIDERS: ATTEND Obstetrics & Gynecology
DX: R53.83 Other fatigue (principal)

== ENCOUNTER → 2017-05-06 | Outpatient (CLI) | payer OTHER ==
--- NOTE | 2017-05-06 14:14 | MAMMOGRAPHY REPORT ---
BILATERAL DIGITAL SCREENING MAMMOGRAM TOMOSYNTHESIS WITH CAD: 05/06/2017 CLINICAL HISTORY: Routine screening. Patient has no complaints. TECHNIQUE: Breast tomosynthesis in addition to standard 2D mammography was performed. Current study was also evaluated with a Computer Aided Detection (CAD) system. COMPARISON: Comparison is made to exams dated: 10/08/2015 mammogram, 09/18/2014 mammogram, and 12/17/19 12 mammogram. Also prior outside mammograms dated 12/17/2012 and 11/21/2009. BREAST COMPOSITION: The tissue of both breasts is heterogeneously dense, which may obscure small mas ses. FINDINGS: No suspicious masses, calcifications, or areas of architectural distortion are noted in ei ther breast. There has been no significant interval change compared to prior exams. Scattered bilate ral benign-appearing calcifications are again noted. Asymmetry seen within the left medial breast mi ddle depth on the CC view is stable compared to prior exams including the 2009 exam. IMPRESSION: ACR BI-RADS CATEGORY 2: BENIGN There is no mammographic evidence of malignancy. A 1 year screening mammogram is recommended. The pa tient will receive written notification of the results. Approximately 10% of breast cancers are not detected with mammography. A negative mammographic report should not delay biopsy if a clinically suggestive mass is present. Nicolasa Mckay M.D. /:05/06/2017 11:33:16 Reeling Machine Operator: Hien JARAMILLO(R)(M), [facility] letter sent: Normal 1/2 BI-RADS Code: ACR BI-RADS Category 2: Benign
== END | disposition home or self-care (01) ==
LOC: C.MAMM 09:58
PROVIDERS: ATTEND Obstetrics & Gynecology
DX: Z12.31 Encounter for screening mammogram for malignant neoplasm of breast (principal)